=== PATIENT | female | born 1950 | race Caucasian/White ===

== ENCOUNTER → 2016-07-18 | Outpatient (CLI) | payer MEDICARE ==
[2016-07-18 11:34] LABS: Appearance,Urine Cloudy (Clear); Bilirubin,Urine Negative (Negative); Glucose,Urine (UA) Negative (Negative); Ketones,Urine Negative (Negative); Leukocyte Esterase,Urine Large (Negative); Mucus,Urine Many /hpf; Nitrite,Urine Negative (Negative); PH, Urine 6.5 (5.0-8.0); Particle Count 13384; Protein,Urine 1+ (Negative); RBC,Urine 2 /hpf (0-5); Specific Gravity,Urine 1.021 (1.001-1.035); Squamous Epithelial Cell,Urine 4 /hpf (0-4); UA Billing (MACRO vs. MICRO) MICRO; Urobilinogen,Urine <2.0 mg/dL (<2.0); WBC,Urine 17 /hpf (0-5)
[2016-07-18 11:40] LABS: CH 32.2; CHCM 32.9; HCT 39.1 % (34.0-46.0); HDW 2.37; MCHC 33.6 g/dL (31.0-37.0); MCV 98.2 fL (80.0-100.0); Mean Platelet Volume 6.5; RBC 3.98 m/uL (3.80-5.40); RDW 12.9 % (11.5-15.5); WBC 5.2 k/uL (3.8-10.6)
[2016-07-18 11:49] LABS: HGB 13.1 gm/dL (11.4-16.0)
[2016-07-18 11:56] LABS: ALT 34 U/L (9-52); AST 24 U/L (14-36); Alkaline Phosphatase 78 U/L (38-126); Anion Gap 11 mmol/L; Blood Urea Nitrogen 11 mg/dL (7-17); Calcium 9.1 mg/dL (8.4-10.2); Carbon Dioxide 30 mmol/L (22-30); Chloride 104 mmol/L (98-107); Cholesterol 231 mg/dL (<200); Glucose 90 mg/dL (74-99); HDL Cholesterol 70 mg/dL (40-60); Non-African American GFR(MDRD) >60 (>60 ml/min/1.73 sqM); Potassium 4.1 mmol/L (3.5-5.1); Sodium 145 mmol/L (137-145); Total Bilirubin 0.5 mg/dL (0.2-1.3); Triglycerides 180 mg/dL (<150)
== END | disposition home or self-care (01) ==
LOC: LABWHC1 10:55
PROVIDERS: ATTEND Internal Medicine
DX: Z00.01 Encounter for general adult medical examination with abnormal findings (principal); I11.9 Hypertensive heart disease without heart failure; E78.2 Mixed hyperlipidemia; M19.90 Unspecified osteoarthritis, unspecified site; R35.0 Frequency of micturition
CPT/HCPCS: 36415; 80053; 80061; 81001; 84439; 84443; 85027

== ENCOUNTER 2017-02-01 18:28 | Inpatient (IN) | payer MEDICARE ==
[2017-02-01] MEDS ORDERED: ONDANSETRON 4 MG/2 ML VIAL IVP STA (18:54)
[2017-02-01] MEDS ORDERED: SODIUM CHLORIDE 0.9% 1,000 ML IV STA (18:54)
[2017-02-01] MEDS ORDERED: MORPHINE SULFATE 4 MG/ML SYRINGE IV STA (18:54)
[2017-02-01] MEDS ORDERED: RX INFO: IV CONTRAST WAS GIVEN 1 EACH MISC MISCELLANE PRN ×2 (18:55→18:58)
--- NOTE | 2017-02-01 19:00 | ED ---
General Adult HPI - General Chief complaint: Back Pain/Injury Stated complaint: back pain,nausea Time Seen by Provider: 02/01/17 18:46 Source: patient, family, RN notes reviewed Mode of arrival: wheelchair Limitations: no limitations - History of Present Illness Initial comments: Patient is a pleasant 67-year-old female presenting to the emergency department complaining of back pain. Patient has mid thoracic pain that was severe and sudden onset. Discomfort was sharp without radiation. Patient did have associated shortness of breath and nausea. No vomiting. Patient was diaphoretic. No history of similar symptoms previously. Discomfort has improved is currently rated only 4/10. - Related Data Home Medications Medication Instructions Recorded Confirmed Potassium Gluconate 99 mg PO SUTUTHSA 12/18/13 02/01/17 Zolpidem Tartrate 5 mg PO HS PRN 12/19/13 02/01/17 Cetirizine HCl [Zyrtec] 10 mg PO DAILY 12/29/15 02/01/17 diphenhydrAMINE [Benadryl] 25 mg PO HS 12/29/15 02/01/17 Furosemide [Lasix] 40 mg PO DAILY 05/31/16 02/01/17 Multivitamins, Thera [Multivitamin 1 tab PO DAILY 05/31/16 02/01/17 (formulary)] Calcium Carbonate/Vitamin D3 1 tab PO BID 02/01/17 02/01/17 [Calcium 600-Vit D3 200 Tablet] Escitalopram [Lexapro] 20 mg PO DAILY 02/01/17 02/01/17 Cedric Red Krill Oil 1 tab PO Q48H 02/01/17 02/01/17 Meloxicam 7.5 mg PO DAILY 02/01/17 02/01/17 Omeprazole [PriLOSEC] 40 mg PO AC-BID 02/01/17 02/01/17 Pravastatin Sodium [Pravachol] 20 mg PO DAILY 02/01/17 02/01/17 Vitamin A 10,000 unit PO DAILY 02/01/17 02/01/17 amLODIPine BESYLATE/BENAZEPRIL 1 cap PO DAILY 02/01/17 02/01/17 [Lotrel 5-20 mg Capsule] Allergies Allergy/AdvReac Type Severity Reaction Status Date / Time foaming hand soaps AdvReac Swelling Uncoded 02/01/17 18:32 of eyes Review of Systems ROS Statement: Those systems with pertinent positive or pertinent negative responses have been documented in the HPI. ROS Other: All systems not noted in ROS Statement are negative. Constitutional: Denies: fever Eyes: Denies: eye pain ENT: Denies: ear pain Respiratory: Reports: dyspnea. Denies: cough Cardiovascular: Denies: chest pain Endocrine: Denies: fatigue Gastrointestinal: Reports: nausea. Denies: abdominal pain, vomiting Genitourinary: Denies: dysuria Musculoskeletal: Reports: back pain Skin: Denies: rash Neurological: Denies: weakness Past Medical History Past Medical History: GERD/Reflux, Hyperlipidemia, Hypertension, Osteoarthritis (OA), Sleep Apnea/CPAP/BIPAP Additional Past Medical History / Comment(s): No longer has sleep apnea. change in bowel habits History of Any Multi-Drug Resistant Organisms: None Reported Past Surgical History: Back Surgery, Bariatric Surgery, Cholecystectomy, Hernia Repair, Tubal Ligation Additional Past Surgical History / Comment(s): 06/05/16 Panniculectomy, incisional ventral hernia repair. Other surgical hx: EGD,COLONOSCOPY, gastric Sleeve, revision of PANNICULECTOMY 06/19/16 Past Anesthesia/Blood Transfusion Reactions: Postoperative Nausea & Vomiting ( PONV) Past Psychological History: Depression Smoking Status: Never smoker Past Alcohol Use History: Occasional Past Drug Use History: None Reported - Past Family History Father Family Medical History: Diabetes Mellitus Mother Family Medical History: Congestive Heart Failure (CHF), Diabetes Mellitus, Hypertension General Exam Limitations: no limitations General appearance: alert, in no apparent distress Head exam: Present: atraumatic Eye exam: Present: normal appearance, PERRL ENT exam: Present: normal oropharynx Neck exam: Present: normal inspection Respiratory exam: Present: normal lung sounds bilaterally. Absent: chest wall tenderness Cardiovascular Exam: Present: regular rate, normal rhythm Expanded Peripheral pulses: 2+: Dorsalis Pedis (R), Dorsalis Pedis (L) GI/Abdominal exam: Present: soft. Absent: distended, tenderness, pulsatile mass Extremities exam: Present: normal inspection. Absent: pedal edema, calf tenderness Back exam: Present: normal inspection. Absent: tenderness Neurological exam: Present: alert Psychiatric exam: Present: normal affect, normal mood Skin exam: Present: normal color Course Vital Signs 02/01/17 02/01/17 02/01/17 18:30 18:40 20:07 Temperature 98.2 F 98.6 F Pulse Rate 80 87 72 Respiratory 26 H 28 H 17 Rate Blood Pressure 122/66 116/78 159/79 O2 Sat by Pulse 100 100 Oximetry 02/01/17 21:18 Temperature Pulse Rate 70 Respiratory 18 Rate Blood Pressure 129/79 O2 Sat by Pulse 98 Oximetry EKG Findings - EKG Comments: EKG Findings:: Normal sinus rhythm 77. FL 138. QRS 88. QT 44. QTC 491. Normal axis. Normal QRS. Normal ST-T. Medical Decision Making - Medical Decision Making Patient reevaluated and resting comfortably in bed. Patient and family updated on results and plan. Case was discussed in detail with Dr. Celaya, who will admit his patient with consult for Dr. Crow. Patient will be admitted for repeat cardiac testing and repeat evaluation of lipase with surgical consult. - Lab Data Result diagrams: 02/01/17 18:40 02/01/17 18:40 Lab Results 02/01/17 02/01/17 02/01/17 Range/Units 18:40 18:40 18:40 WBC 8.4 (3.8-10.6) k/uL RBC 4.32 (3.80-5.40) m/uL Hgb 14.3 (11.4-16.0) gm/dL Hct 40.6 (34.0-46.0) % MCV 93.9 (80.0-100.0) fL MCH 33.0 (25.0-35.0) pg MCHC 35.2 (31.0-37.0) g/dL RDW 12.6 (11.5-15.5) % Plt Count 255 (150-450) k/uL Neutrophils % 80 % Lymphocytes % 13 % Monocytes % 4 % Eosinophils % 1 % Basophils % 0 % Neutrophils # 6.7 (1.3-7.7) k/uL Lymphocytes # 1.1 (1.0-4.8) k/uL Monocytes # 0.3 (0-1.0) k/uL Eosinophils # 0.1 (0-0.7) k/uL Basophils # 0.0 (0-0.2) k/uL PT (9.0-12.0) sec INR (<1.2) APTT (22.0-30.0) sec Sodium 142 (137-145) mmol/L Potassium 3.7 (3.5-5.1) mmol/L Chloride 105 (98-107) mmol/L Carbon Dioxide 21 L (22-30) mmol/L Anion Gap 16 mmol/L BUN 21 H (7-17) mg/dL Creatinine 0.98 (0.52-1.04) mg/dL Est GFR (MDRD) Af Amer >60 (>60 ml/min/1.73 sqM) Est GFR (MDRD) Non-Af 57 (>60 ml/min/1.73 sqM) Glucose 82 (74-99) mg/dL Calcium 9.5 (8.4-10.2) mg/dL Magnesium 1.8 (1.6-2.3) mg/dL Total Bilirubin 0.6 (0.2-1.3) mg/dL AST 56 H (14-36) U/L ALT 39 (9-52) U/L Alkaline Phosphatase 96 (38-126) U/L Total Creatine Kinase 86 (30-135) U/L CK-MB (CK-2) 1.0 (0.0-2.4) ng/mL CK-MB (CK-2) Rel Index 1.2 Troponin I <0.012 (0.000-0.034) ng/mL Total Protein 7.7 (6.3-8.2) g/dL Albumin 4.6 (3.5-5.0) g/dL Amylase 89 (30-110) U/L Lipase 472 H (23-300) U/L 02/01/17 Range/Units 18:40 WBC (3.8-10.6) k/uL RBC (3.80-5.40) m/uL Hgb (11.4-16.0) gm/dL Hct (34.0-46.0) % MCV (80.0-100.0) fL MCH (25.0-35.0) pg MCHC (31.0-37.0) g/dL RDW (11.5-15.5) % Plt Count (150-450) k/uL Neutrophils % % Lymphocytes % % Monocytes % % Eosinophils % % Basophils % % Neutrophils # (1.3-7.7) k/uL Lymphocytes # (1.0-4.8) k/uL Monocytes # (0-1.0) k/uL Eosinophils # (0-0.7) k/uL Basophils # (0-0.2) k/uL PT 10.3 (9.0-12.0) sec INR 1.0 (<1.2) APTT 22.6 (22.0-30.0) sec Sodium (137-145) mmol/L Potassium (3.5-5.1) mmol/L Chloride (98-107) mmol/L Carbon Dioxide (22-30) mmol/L Anion Gap mmol/L BUN (7-17) mg/dL Creatinine (0.52-1.04) mg/dL Est GFR (MDRD) Af Amer (>60 ml/min/1.73 sqM) Est GFR (MDRD) Non-Af (>60 ml/min/1.73 sqM) Glucose (74-99) mg/dL Calcium (8.4-10.2) mg/dL Magnesium (1.6-2.3) mg/dL Total Bilirubin (0.2-1.3) mg/dL AST (14-36) U/L ALT (9-52) U/L Alkaline Phosphatase (38-126) U/L Total Creatine Kinase (30-135) U/L CK-MB (CK-2) (0.0-2.4) ng/mL CK-MB (CK-2) Rel Index Troponin I (0.000-0.034) ng/mL Total Protein (6.3-8.2) g/dL Albumin (3.5-5.0) g/dL Amylase (30-110) U/L Lipase (23-300) U/L - Radiology Data Radiology results: report reviewed (Computed tomography scan of the chest abdomen pelvis shows no evidence of pulmonary embolism or aorta problem. Mild bleed distended small bowel consistent with ileus.) Disposition Clinical Impression: Thoracic back pain Disposition: ADMITTED IP TO THIS [facility] Referrals: Shiva Celaya MD [Primary Care Provider] - 1-2 days Decision Time: 21:23
[2017-02-01 19:12] LABS: Basophils % (A) 0 %; CH 32.7; Eosinophils # (A) 0.1 k/uL (0-0.7); Eosinophils % (A) 1 %; HCT 40.6 % (34.0-46.0); HGB 14.3 gm/dL (11.4-16.0); Luc # (Auto) 0.14; Luc % (Auto) 2; Lymphocytes # (A) 1.1 k/uL (1.0-4.8); Lymphocytes % (A) 13 %; MCHC 35.2 g/dL (31.0-37.0); MCV 93.9 fL (80.0-100.0); Mean Platelet Volume 7.1; Monocytes # (A) 0.3 k/uL (0-1.0); Monocytes % (A) 4 %; Neutrophils # (A) 6.7 k/uL (1.3-7.7); Neutrophils % (A) 80 %; RBC 4.32 m/uL (3.80-5.40); RDW 12.6 % (11.5-15.5); WBC 8.4 k/uL (3.8-10.6); WBC (Perox) 8.41
[2017-02-01 19:23] LABS: ALT 39 U/L (9-52); AST 56 U/L (14-36); Alkaline Phosphatase 96 U/L (38-126); Amylase 89 U/L (30-110); Anion Gap 16 mmol/L; Blood Urea Nitrogen 21 mg/dL (7-17); Calcium 9.5 mg/dL (8.4-10.2); Carbon Dioxide 21 mmol/L (22-30); Chloride 105 mmol/L (98-107); Glucose 82 mg/dL (74-99); Magnesium 1.8 mg/dL (1.6-2.3); Non-African American GFR(MDRD) 57 (>60 ml/min/1.73 sqM); Potassium 3.7 mmol/L (3.5-5.1); Sodium 142 mmol/L (137-145); Total Bilirubin 0.6 mg/dL (0.2-1.3); Total Protein 7.7 g/dL (6.3-8.2)
[2017-02-01 19:30] LABS: Partial Thromboplastin Time 22.6 sec (22.0-30.0); Prothrombin Time 10.3 sec (9.0-12.0)
[2017-02-01 19:34] LABS: Creatine Kinase 86 U/L (30-135)
[2017-02-01 19:46] LABS: Troponin I <0.012 ng/mL (0.000-0.034)
--- NOTE | 2017-02-01 20:19 | CT ---
EXAMINATION TYPE: CT angio thoracic/abd aorta DATE OF EXAM: 02/01/2017 COMPARISON: NONE HISTORY: Back pain CT DLP: mGycm. Automated Exposure Control for Dose Reduction was Utilized. CONTRAST: Visipaque 100 mL. There are 3-D post processed images. FINDINGS: The lungs are clear of consolidation. There is no pleural effusion. There is no mediastinal adenopath y. Ascending aorta measures 3.5 cm. There is no pericardial effusion. There is no evidence of aortic dissection. There is patency of the superior mesenteric artery and the celiac artery. There is bilateral patency of the common internal a nd external iliac arteries. There is no sign of stenosis. There is no retroperitoneal adenopathy. Liver spleen pancreas appear normal. There are clips from cholecystectomy. Kidneys have normal size a nd contour. There is no hydronephrosis. There are multiple fluid-filled loops of small bowel. These m easure up to 3.5 cm. There is no ascites. Bladder distends smoothly. There is normal contrast opacification of the pulmonary arteries. There are no filling defects. I see no focal bony destructive process. IMPRESSION: No evidence of pulmonary embolism. No evidence of aortic aneurysm or dissection. No sign of any hemodynamically significant stenosis. 1 cm left renal cortical cyst noted. Minimal atheroscler otic vascular calcification. Mildly distended small bowel consistent with small bowel ileus..
[2017-02-01] MEDS ORDERED: NITROGLYCERIN SL TABS 0.4 MG TAB SUBLINGUAL STA (20:42)
[2017-02-01] MEDS ORDERED: NALOXONE 0.4 MG/ML 1 ML VIAL IV PRN (21:25)
[2017-02-01] MEDS ORDERED: traMADol 50 MG TAB PO PRN (21:25)
[2017-02-01] MEDS ORDERED: ONDANSETRON 4 MG/2 ML VIAL IVP PRN (21:25)
[2017-02-01] MEDS: HYDROmorphone 1 MG/ML 1 ML SYRINGE IV PRN (21:52)
[2017-02-01 22:33] VITALS: BMI 27.9
[2017-02-02 01:10] VITALS: RESP 18
[2017-02-02] MEDS: HYDROmorphone 1 MG/ML 1 ML SYRINGE IV PRN (01:28)
[2017-02-02 01:50] LABS: Creatine Kinase 72 U/L (30-135)
[2017-02-02 02:03] LABS: Creatine Kinase MB 0.9 ng/mL (0.0-2.4); Troponin I <0.012 ng/mL (0.000-0.034)
[2017-02-02 07:14] LABS: ALT 408 U/L (9-52); AST 726 U/L (14-36); Alkaline Phosphatase 110 U/L (38-126); Amylase <30 U/L (30-110); Anion Gap 6 mmol/L; Blood Urea Nitrogen 16 mg/dL (7-17); Carbon Dioxide 28 mmol/L (22-30); Chloride 106 mmol/L (98-107); Cholesterol 175 mg/dL (<200); Glucose 80 mg/dL (74-99); HDL Cholesterol 59 mg/dL (40-60); Non-African American GFR(MDRD) >60 (>60 ml/min/1.73 sqM); Potassium 3.7 mmol/L (3.5-5.1); Sodium 140 mmol/L (137-145); Total Bilirubin 1.2 mg/dL (0.2-1.3)
[2017-02-02 07:17] LABS: Basophils % (A) 1 %; CH 32.9; CHCM 33.5; Eosinophils # (A) 0.1 k/uL (0-0.7); Eosinophils % (A) 3 %; HCT 35.5 % (34.0-46.0); HDW 2.22; HGB 11.9 gm/dL (11.4-16.0); Luc # (Auto) 0.05; Luc % (Auto) 1; Lymphocytes # (A) 0.4 k/uL (1.0-4.8); Lymphocytes % (A) 11 %; MCH 33.2 pg (25.0-35.0); MCHC 33.6 g/dL (31.0-37.0); MCV 98.8 fL (80.0-100.0); Mean Platelet Volume 7.8; Monocytes # (A) 0.2 k/uL (0-1.0); Monocytes % (A) 7 %; Neutrophils # (A) 2.6 k/uL (1.3-7.7); Neutrophils % (A) 77 %; RDW 13.1 % (11.5-15.5); WBC 3.4 k/uL (3.8-10.6); WBC (Perox) 3.69
[2017-02-02 07:42] LABS: Creatine Kinase 69 U/L (30-135)
[2017-02-02 07:54] LABS: Creatine Kinase MB 0.7 ng/mL (0.0-2.4); Troponin I <0.012 ng/mL (0.000-0.034)
--- NOTE | 2017-02-02 10:32 | ECHOF ---
Referral Reason:thoracic back pain MEASUREMENTS -------- HEIGHT: 170.2 cm WEIGHT: 80.7 kg BP: RVIDd: 2.7 cm (< 3.3) IVSd: 1.2 cm (0.6 - 1.1) LVIDd: 4.9 cm (3.9 - 5.3) LVPWd: 0.9 cm (0.6 - 1.1) IVSs: 1.4 cm LVIDs: 4.0 cm LVPWs: 1.4 cm LA Diam: 3.2 cm (2.7 - 3.8) LAESV Index (A-L): 29.24 ml/m Ao Diam: 3.1 cm (2.0 - 3.7) AV Cusp: 2.0 cm (1.5 - 2.6) LA Diam: 4.0 cm (2.7 - 3.8) MV EXCURSION: 13.189 mm (> 18.000) MV EF SLOPE: 74 mm/s (70 - 150) EPSS: 0.7 cm MV E Yassine: 0.89 m/s MV DecT: 181 ms MV A Yassine: 0.98 m/s MV E/A Ratio: 0.90 RAP: 5.00 mmHg RVSP: 36.87 mmHg FINDINGS -------- Sinus rhythm. This was a technically adequate study. The left ventricular size is normal. There is mild concentric left ventricular hypertrophy. Overall left ventricular systolic function is normal with, an EF between 55 - 60 %. The right ventricle is normal in size. LA is midly dilated 29-33ml/m2. The right atrial size is normal. The aortic valve is trileaflet, and appears structurally normal. No aortic stenosis or regurgitation. The mitral valve is normal. Mild mitral regurgitation is present. Mild tricuspid regurgitation present. There is no evidence of pulmonary hypertension. The right ventricular systolic pressure, as measured by Doppler, is 36.87mmHg. There is no pulmonic regurgitation present. The aortic root size is normal. There is no pericardial effusion. CONCLUSIONS -------- 1. Sinus rhythm. 2. The aortic root size is normal. 3. There is no pericardial effusion. 4. There is mild concentric left ventricular hypertrophy. 5. Overall left ventricular systolic function is normal with, an EF between 55 - 60 %. 6. LA is midly dilated 29-33ml/m2. 7. The aortic valve is trileaflet, and appears structurally normal. No aortic stenosis or regurgitation. 8. Mild mitral regurgitation is present. 9. Mild tricuspid regurgitation present. 10. There is no evidence of pulmonary hypertension. 11. There is no pulmonic regurgitation present. [employer]: Mary Aguirre RDCS
[2017-02-02] MEDS: ACETAMINOPHEN TAB 325 MG TAB PO PRN ×3 (10:43→23:03)
--- NOTE | 2017-02-02 11:21 | CONS ---
CHIEF COMPLAINT: Chest pain. Arleth is a 67-year-old lady with history of hypertension who presented to hospital with upper back pain. It is mild to moderate in intensity, came on at rest, got worse with movements and deep breaths. She comes in. EKG does not reveal ischemic changes. Cardiac enzymes have been negative. A CT chest did not reveal pulmonary embolism or aortic aneurysm or dissection. She had significant elevation of liver enzymes. She came in with AST, ALT of 56 and 39, they jumped to 726 and 408. Potassium is 3.7. Creatinine is 0.7. Hemoglobin is 11.9. At the time of my evaluation this morning, she is pain free. Hemodynamically stable and in no apparent distress. Past medical history is significant for hypertension, dyslipidemia. Current medications include Pravachol 20 q. daily, Lotrel, Benadryl, Prilosec, multivitamin, Lasix, Lexapro, Zyrtec. ALLERGIES: There are no known drug allergies. Family history is negative for premature coronary artery disease. Social history is negative for smoking, EtOH abuse or drug abuse. REVIEW OF SYSTEMS: HEENT: Unremarkable. CARDIAC: As described above. RESPIRATORY: Negative. GI: Negative. GENITOURINARY: Negative. ALLERGY/IMMUNOLOGIC: Negative. MUSCULOSKELETAL: Negative. ENDOCRINE: Negative. HEMATOLOGIC: Negative. DERM: Negative. CONSTITUTIONAL: Negative. ONCOLOGICAL: Negative. The rest of the system review is not relevant. On exam, she is comfortable at rest. Vital signs are stable. There is no jugular venous distention. Abdomen is soft. Examination of the extremities did not reveal any edema. Peripheral pulses are felt. [employer] OPERATOR exam did not reveal focal neurological deficits. A CT chest is negative for pulmonary embolism. An echocardiogram shows normal LV function. EKG does not reveal ischemic changes. ASSESSMENT: 1. Atypical chest pain 2. Elevated liver enzymes. PLAN: I reviewed echo, CT chest, EKG, cardiac enzymes. I do not think she requires further workup at this time. When she is discharged home, I will arrange for an outpatient stress test on her. She has elevated liver enzymes and this needs to be investigated further. We should certainly consider CBD stones. Surgery has already been consulted and I am going to defer this to their expertise. JACKY
[2017-02-02 11:27] LABS: Appearance,Urine Clear (Clear); Bilirubin,Urine Negative (Negative); Glucose,Urine (UA) Negative (Negative); Ketones,Urine Negative (Negative); Leukocyte Esterase,Urine Small (Negative); Mucus,Urine Rare /hpf; Nitrite,Urine Negative (Negative); Particle Count 1223; Protein,Urine Trace (Negative); Specific Gravity,Urine 1.031 (1.001-1.035); UA Billing (MACRO vs. MICRO) MICRO; WBC,Urine 4 /hpf (0-5)
[2017-02-02] MEDS: PANTOPRAZOLE 40 MG TABLET PO SCH (12:37)
--- NOTE | 2017-02-02 15:07 | P.GSCN ---
History of Present Illness Consult date: 02/02/17 Reason for Consult: Back pain Requesting physician: Shiva Celaya History of present illness: 67 years old female presented with acute onset of upper back pain described as sharp stabbing lasting for 1 day. No aggravating or relieving factors Workup included CT chest which did not show aluminum embolism or thoracic aneurysm. Patient now reports pain has resolved. No cough or shortness of breath. No burning urination or blood in urine. Lipase mildly elevated at admission which has resolved. Normal appetite. No abdominal pain. Patient is status post sleeve gastrectomy in 2013 with more than 80 pounds weight loss, status post panniculectomy and revisional surgery after panniculectomy including hernia repair. No surgical site infection. No open wounds Review of Systems Constitutional: Denies fever, weight loss or loss of appetite HEENT: No difficulty in vision or hearing. Denies dysphagia. Cardiovascular: Denies chest pain, palpitations, dizziness, shortness of breath. Respiratory: No cough or SOB Gastrointestinal: No recent change in bowel habits, no abdominal pain, no nausea or vomiting. Denies reflux symptoms. Integumentary: No skin ulcers or breakdown. Genitourinary: No urinary incontinence, hematuria or dysuria Neurologic: No seizures, denies weakness in upper or lower extremities Musculoskeletal: Known arthritis and joint pain Psychiatry: Known history of depression, no suicidal ideation, no anxiety or psychosis ROS unobtainable: due to endotracheal tube Past Medical History Past Medical History: GERD/Reflux, Hyperlipidemia, Hypertension, Osteoarthritis (OA), Sleep Apnea/CPAP/BIPAP Additional Past Medical History / Comment(s): No longer uses CPAP for sleep apnea, constipation, gallbladder attacks- removed in 1984 History of Any Multi-Drug Resistant Organisms: None Reported Past Surgical History: Back Surgery, Bariatric Surgery, Cholecystectomy, Hernia Repair, Tubal Ligation Additional Past Surgical History / Comment(s): 06/05/16 Panniculectomy, incisional ventral hernia repair. Other surgical hx: EGD,COLONOSCOPY, gastric Sleeve, revision of PANNICULECTOMY 06/19/16 Past Anesthesia/Blood Transfusion Reactions: Postoperative Nausea & Vomiting ( PONV) Past Psychological History: Depression Additional Psychological History / Comment(s): Pt resides with her spouse. She is independent. Smoking Status: Never smoker Past Alcohol Use History: Occasional Additional Past Alcohol Use History / Comment(s): 1-2 x /week Past Drug Use History: None Reported - Past Family History Father Family Medical History: Diabetes Mellitus Mother Family Medical History: Congestive Heart Failure (CHF), Diabetes Mellitus, Hypertension Medications and Allergies Home Medications Medication Instructions Recorded Confirmed Type Potassium Gluconate 99 mg PO SUTUTHSA 12/18/13 02/01/17 History Zolpidem Tartrate 5 mg PO HS PRN 12/19/13 02/01/17 History Cetirizine HCl [Zyrtec] 10 mg PO DAILY 12/29/15 02/01/17 History diphenhydrAMINE [Benadryl] 25 mg PO HS 12/29/15 02/01/17 History Furosemide [Lasix] 40 mg PO DAILY 05/31/16 02/01/17 History Multivitamins, Thera [Multivitamin 1 tab PO DAILY 05/31/16 02/01/17 History (formulary)] Calcium Carbonate/Vitamin D3 1 tab PO BID 02/01/17 02/01/17 History [Calcium 600-Vit D3 200 Tablet] Escitalopram [Lexapro] 20 mg PO DAILY 02/01/17 02/01/17 History Cedric Red Krill Oil 1 tab PO Q48H 02/01/17 02/01/17 History Meloxicam 7.5 mg PO DAILY 02/01/17 02/01/17 History Omeprazole [PriLOSEC] 40 mg PO AC-BID 02/01/17 02/01/17 History Pravastatin Sodium [Pravachol] 20 mg PO DAILY 02/01/17 02/01/17 History Vitamin A 10,000 unit PO DAILY 02/01/17 02/01/17 History amLODIPine BESYLATE/BENAZEPRIL 1 cap PO DAILY 02/01/17 02/01/17 History [Lotrel 5-20 mg Capsule] Allergies Allergy/AdvReac Type Severity Reaction Status Date / Time foaming hand soaps AdvReac Swelling Uncoded 02/01/17 18:32 of eyes Surgical - Exam Vital Signs Temp Pulse Resp BP Pulse Ox 98.2 F 80 26 H 122/66 100 02/01/17 18:30 02/01/17 18:30 02/01/17 18:30 02/01/17 18:30 02/01/17 18:30 General: Patient is alert and oriented to time, place and person and cooperative with exam. HEENT: No pallor, no icterus, no thyroid enlargement, no cervical lymphadenopathy. Chest: Bilateral equal breath sounds present. No wheezes, no crackles. Cardiovascular: Regular rate and rhythm. Abdomen: Soft, nontender, nondistended. Well-healed surgical scars . No hernias Integumentary: No active ulcers or discharge. Neurologic: Cranial nerves II-XII intact. Strength upper and lower extremities 5/5. No focal neurologic deficits. Gait is normal. Psychiatric: No anxiety or psychosis. No suicidal thoughts. Results - Labs 02/02/17 05:47 02/02/17 05:47 Abnormal Lab Results - Last 24 Hours (Table) 02/01/17 02/02/17 02/02/17 Range/Units 18:40 05:47 05:47 WBC 3.4 L (3.8-10.6) k/uL RBC 3.60 L (3.80-5.40) m/uL Lymphocytes # 0.4 L (1.0-4.8) k/uL Carbon Dioxide 21 L (22-30) mmol/L BUN 21 H (7-17) mg/dL Calcium 8.0 L (8.4-10.2) mg/dL AST 56 H 726 H (14-36) U/L ALT 408 H (9-52) U/L Total Protein 6.0 L (6.3-8.2) g/dL LDL Cholesterol, Calc 103 H (0-99) mg/dL Amylase <30 L (30-110) U/L Lipase 472 H (23-300) U/L Urine Protein (Negative) Ur Leukocyte Esterase (Negative) Urine Mucus (None) /hpf 02/02/17 Range/Units 10:50 WBC (3.8-10.6) k/uL RBC (3.80-5.40) m/uL Lymphocytes # (1.0-4.8) k/uL Carbon Dioxide (22-30) mmol/L BUN (7-17) mg/dL Calcium (8.4-10.2) mg/dL AST (14-36) U/L ALT (9-52) U/L Total Protein (6.3-8.2) g/dL LDL Cholesterol, Calc (0-99) mg/dL Amylase (30-110) U/L Lipase (23-300) U/L Urine Protein Trace H (Negative) Ur Leukocyte Esterase Small H (Negative) Urine Mucus Rare H (None) /hpf Microbiology - Last 24 Hours (Table) 02/02/17 10:50 Urine Culture - Preliminary Urine,Clean Catch Diabetes panel 02/01/17 02/02/17 Range/Units 18:40 05:47 Sodium 142 140 (137-145) mmol/L Potassium 3.7 3.7 (3.5-5.1) mmol/L Chloride 105 106 (98-107) mmol/L Carbon Dioxide 21 L 28 (22-30) mmol/L BUN 21 H 16 (7-17) mg/dL Creatinine 0.98 0.75 (0.52-1.04) mg/dL Glucose 82 80 (74-99) mg/dL Calcium 9.5 8.0 L (8.4-10.2) mg/dL AST 56 H 726 H (14-36) U/L ALT 39 408 H (9-52) U/L Alkaline Phosphatase 96 110 (38-126) U/L Total Protein 7.7 6.0 L (6.3-8.2) g/dL Albumin 4.6 3.5 (3.5-5.0) g/dL Triglycerides 67 (<150) mg/dL HDL Cholesterol 59 (40-60) mg/dL Calcium panel 02/01/17 02/02/17 Range/Units 18:40 05:47 Calcium 9.5 8.0 L (8.4-10.2) mg/dL Albumin 4.6 3.5 (3.5-5.0) g/dL Pituitary panel 02/01/17 02/02/17 Range/Units 18:40 05:47 Sodium 142 140 (137-145) mmol/L Potassium 3.7 3.7 (3.5-5.1) mmol/L Chloride 105 106 (98-107) mmol/L Carbon Dioxide 21 L 28 (22-30) mmol/L BUN 21 H 16 (7-17) mg/dL Creatinine 0.98 0.75 (0.52-1.04) mg/dL Glucose 82 80 (74-99) mg/dL Calcium 9.5 8.0 L (8.4-10.2) mg/dL Adrenal panel 07/20/17 07/21/17 Range/Units 18:40 05:47 Sodium 142 140 (137-145) mmol/L Potassium 3.7 3.7 (3.5-5.1) mmol/L Chloride 105 106 (98-107) mmol/L Carbon Dioxide 21 L 28 (22-30) mmol/L BUN 21 H 16 (7-17) mg/dL Creatinine 0.98 0.75 (0.52-1.04) mg/dL Glucose 82 80 (74-99) mg/dL Calcium 9.5 8.0 L (8.4-10.2) mg/dL Total Bilirubin 0.6 1.2 (0.2-1.3) mg/dL AST 56 H 726 H (14-36) U/L ALT 39 408 H (9-52) U/L Alkaline Phosphatase 96 110 (38-126) U/L Total Protein 7.7 6.0 L (6.3-8.2) g/dL Albumin 4.6 3.5 (3.5-5.0) g/dL Assessment and Plan (1) Thoracic back pain Status: Acute (2) Status post panniculectomy Status: Acute (3) Bariatric surgery status Status: Chronic (4) Hx of cholecystectomy Status: Chronic Plan: 1. No acute surgical abdomen 2. Elevated LFTs, etiology unclear 3. Repeat amylase, lipase , LFTs and CBC in am 4. Regular diet 5. Resume daily MVI
--- NOTE | 2017-02-02 17:08 | HP ---
CHIEF COMPLAINT: Severe mid thoracic back pain and upper abdominal pain associated with nausea. This is a 67 year old white female who was brought to the emergency room with sudden onset of severe mid thoracic back pain and upper abdominal discomfort and some associated nausea. These were extremely severe pain mostly in the back and this was associated with some degree of shortness of breath and in the emergency room, she had extensive evaluation and her CBC was unremarkable with a WBC 8.4. Hemoglobin 14.3, platelet count 255,000. PT and INR within normal limits. Sodium 142, potassium 3.7, BUN 21, creatinine 0.98. Glucose 82. AST in the ER was 56 and ALT 59. Alkaline phosphatase 96. Serum amylase 89 and lipase 478. She had a CT angio of the chest and abdomen which was reported as essentially negative. No aortic aneurysm or pulmonary embolism. Liver and spleen and pancreas appear normal. The patient was admitted to the hospital for further evaluation and treatment. Her past medical history reveals she is known to have hypertensive cardiovascular disease and also gastroesophageal reflux disease. She also has history of sleep apnea in the past and morbid obesity and she has had bariatric surgery by Dr. Camara. She had gastric sleeve surgery. She also has had panniculectomy, incisional ventral hernia repair, and back surgery in the past. Her current medications include: 1. Lexapro 20 mg daily. 2. Ambien 5 mg q.h.s. prn. 3. Lotrel 5/20 one daily. 4. Lasix 20 mg po daily. 5. Prilosec 20 mg po b.i.d. She has no known drug allergies. She does not smoke and she does not drink alcohol. FAMILY HISTORY: Positive for cancer and heart disease. REVIEW OF SYSTEMS: The patient denies any headache. Appetite has been good. Bowels are regular. She has no chest pain but she had upper back pain and also she has abdominal discomfort. She has no polyuria or dysuria. She has no neurological symptoms. Physical examination reveals a 67 year old white female well nourished and well developed but still she is having some pain that has improved since admission. There is no jaundice. There is no generalized lymphadenopathy. There are no petechia or bruises. Pulses 76 per minute and regular. Blood pressure 136/70. HEENT: negative. Neck is supple. There is no jugular venous distention. There is no goiter. There is no carotid bruit. Heart is in sinus rhythm. Lungs are clear to auscultation and percussion. Abdomen is soft and nontender. There is no mass palpable. Examination of the lower extremities revealed no pitting edema. Neurological examination does not reveal any localizing signs. IMPRESSION: 1. Upper abdominal and upper back pain, etiology undetermined. 2. Past history of bariatric surgery, gastric sleeve by Dr. Camara. 3. History of hypertensive cardiovascular disease. 4. Gastroesophageal reflux disease. 5. Degenerative arthritis, multiple joints. 6. History of major depression. 7. Hyperlipidemia. PLAN: The patient will be admitted to the hospital and the patient will get serial liver enzymes and amylase and lipase. Her repeat test shows elevated AST which is 726, ALT 408 and lipase elevated to 478. Rule out pancreatitis and we will also further evaluate liver enzymes. We will also consult Dr. Camara. Prognosis guarded. MTDD
--- NOTE | 2017-02-02 17:53 | P.PN ---
Progress Note - Text Patient seen and evaluated. Patient is well-known to me. She has elevated liver enzymes of unclear etiology. Primary hepatic stones may also have occurred. Also recommend liver ultrasound regarding the hepatobiliary system and cause for transient pancreatitis. Over the weekend rounder is Dr. Arechiga. She will follow-up with me as outpatient.
[2017-02-03 06:29] LABS: Basophils % (A) 1 %; CH 32.9; CHCM 33.6; Eosinophils # (A) 0.2 k/uL (0-0.7); Eosinophils % (A) 7 %; HCT 35.6 % (34.0-46.0); HDW 2.24; Luc % (Auto) 3; Lymphocytes % (A) 31 %; MCH 33.2 pg (25.0-35.0); MCHC 33.8 g/dL (31.0-37.0); MCV 98.4 fL (80.0-100.0); Mean Platelet Volume 7.6; Monocytes # (A) 0.2 k/uL (0-1.0); Monocytes % (A) 8 %; Neutrophils # (A) 1.6 k/uL (1.3-7.7); Neutrophils % (A) 50 %; RBC 3.62 m/uL (3.80-5.40); RDW 13.6 % (11.5-15.5); WBC 3.1 k/uL (3.8-10.6); WBC (Perox) 3.16
[2017-02-03] MEDS: PANTOPRAZOLE 40 MG TABLET PO SCH (06:30)
[2017-02-03 06:42] LABS: ALT 236 U/L (9-52); AST 192 U/L (14-36); Alkaline Phosphatase 104 U/L (38-126); Amylase <30 U/L (30-110); Anion Gap 5 mmol/L; Blood Urea Nitrogen 10 mg/dL (7-17); Calcium 8.4 mg/dL (8.4-10.2); Carbon Dioxide 29 mmol/L (22-30); Chloride 107 mmol/L (98-107); Glucose 80 mg/dL (74-99); Non-African American GFR(MDRD) >60 (>60 ml/min/1.73 sqM); Potassium 3.4 mmol/L (3.5-5.1); Sodium 141 mmol/L (137-145); Total Bilirubin 0.4 mg/dL (0.2-1.3); Total Protein 5.6 g/dL (6.3-8.2)
[2017-02-03] MEDS ORDERED: ZOLPIDEM 5 MG TAB PO PRN (10:31)
[2017-02-03] MEDS ORDERED: ESCITALOPRAM 20 MG TAB PO SCH (10:45)
[2017-02-03] MEDS ORDERED: LISINOPRIL 20 MG TAB PO SCH (10:45)
[2017-02-03] MEDS ORDERED: VITAMIN A 10,000 UNIT CAPSULE PO SCH (10:45)
[2017-02-03] MEDS ORDERED: LORATADINE 10 MG TAB PO SCH (10:45)
[2017-02-03] MEDS ORDERED: amLODIPine 5 MG TAB PO SCH (10:45)
[2017-02-03] MEDS ORDERED: POTASSIUM CHLORIDE ER 20 MEQ TAB.ER PO SCH (10:45)
[2017-02-03] MEDS ORDERED: MELOXICAM 7.5 MG TAB PO SCH (10:45)
[2017-02-03] MEDS ORDERED: PRAVASTATIN SODIUM 20 MG TAB PO SCH (10:45)
[2017-02-03] MEDS ORDERED: MULTIVITAMINS, THERA 1 EACH TAB PO SCH (12:00)
--- NOTE | 2017-02-03 12:12 | US ---
EXAMINATION TYPE: US abdomen complete DATE OF EXAM: 02/03/2017 COMPARISON: NONE CLINICAL HISTORY: elevated lfts EXAM MEASUREMENTS: Liver Length: 17 cm Gallbladder Wall: surgically absent CBD: 0.4cm Right Kidney: 11.1 x 4.3 x 5.3 cm Pancreas: wnl limited due to overlying bowel gas Liver: wnl Gallbladder: surgically absent Evidence for sonographic Toth's sign: no CBD: wnl Right Kidney: wnl The liver is homogenous. The intrahepatic portion of the IVC and proximal abdominal aorta are within normal limits. The gallbladder is surgically absent. Common bile duct is unremarkable. The visual ized portions of the pancreas are homogenous. The spleen is unremarkable. Rt kidney is free of hydr onephrosis. No renal lesions are seen. IMPRESSION: unremarkable study
[2017-02-03 12:40] VITALS: BP 189/90; PULSE 64; TEMP 96.8
[2017-02-03] MEDS ORDERED: PANTOPRAZOLE 40 MG TABLET PO SCH (17:30)
[2017-02-03] MEDS ORDERED: diphenhydrAMINE 25 MG CAP PO SCH (21:00)
[2017-02-03] MEDS ORDERED: CALCIUM CARB-VIT D 500MG-200UN 1 EACH TAB PO SCH (21:00)
[2017-02-04] MEDS ORDERED: FUROSEMIDE 40 MG TAB PO SCH (09:00)
--- NOTE | 2017-02-05 11:44 | PN ---
DATE OF SERVICE: 02/03/2017 This is a 67-year-old white female who was admitted with severe upper back and anterior epigastric discomfort. This was also associated with some nausea. In the emergency room she was evaluated and her CT scan was unremarkable. Her liver enzymes were slightly elevated. There was also slight elevation of lipase and patient was admitted to the hospital for further evaluation and treatment. Patient today seemed to be feeling slightly better. She was seen by Dr. Camara in consultation. Patient has had bariatric surgery in the past. Dr. Camara is going to do an ultrasound of the liver and her enzyme is coming down, but is still elevated. Patient is apparently feeling better and she wants to be discharged because she wants to go to go see her son finishing the [employer]. Patient was advised to have ultrasound down and maybe she may have to stay in the hospital for 1 to 2 more days to see the enzymes to continue to improve. We will also repeat the lipase and amylase and also the liver enzymes tomorrow. Her vital signs are otherwise stable. Will continue current medications. Patient was told that if she leaves the hospital today she may have to be discharged AMA. Patient understood her situation well and so as planned if she is staying here we will repeat the serum amylase and also the liver enzymes. She was febrile yesterday and she received 2 doses of Rocephin and she is afebrile. When she is discharged she will be given a course of Keflex. Prognosis guarded. MTDD
== END 2017-02-03 13:14 | disposition left against medical advice (07) | DRG 552 ==
LOC: EC 18:28 → 6SEL 21:23 → OBSVTOIN 02-03 12:43
PROVIDERS: ADMIT Internal Medicine; ATTEND Internal Medicine
DX: M54.6 Pain in thoracic spine (principal); I11.9 Hypertensive heart disease without heart failure; R07.89 Other chest pain; R10.10 Upper abdominal pain, unspecified; E78.5 Hyperlipidemia, unspecified; G47.30 Sleep apnea, unspecified; K21.9 Gastro-esophageal reflux disease without esophagitis; M19.90 Unspecified osteoarthritis, unspecified site; F32.9 Major depressive disorder, single episode, unspecified; R74.8 Abnormal levels of other serum enzymes; Z79.899 Other long term (current) drug therapy; Z98.84 Bariatric surgery status; Z82.49 Family history of ischemic heart disease and other diseases of the circulatory system
CPT/HCPCS: 36415; 71275; 75635; 76705; 80053; 80061; 81001; 82150; 82550; 82553; 83690; 83735; 84484; 85025; 85610; 85730; 87040; 87077; 87086; 87186; 93005; 93306; 94760; 96365; 96366; 96374; 96375; 96376; 99285

== ENCOUNTER 2017-02-20 08:12 | Day surgery (SDC) | payer MEDICARE ==
--- NOTE | 2017-02-20 08:02 | P.GSHP ---
History of Present Illness H&P Date: 02/20/17 CHIEF COMPLAINT: Painful abdominal wall lesion, right flank. HISTORY OF PRESENT ILLNESS: The patient is a 67 year-old female who presents with a palpable nodule of the right flank. She reports in the last several months, the nodule has become increasingly uncomfortable. She presents today for surgical excision. PAST MEDICAL HISTORY: Please see list. PAST SURGICAL HISTORY: Please see list. MEDICATIONS: Please see list. ALLERGIES: Please see list. SOCIAL HISTORY: No illicit drug use FAMILY HISTORY: No reports of Crohn disease or ulcerative colitis. REVIEW OF ORGAN SYSTEMS: CONSTITUTIONAL: No reports of fevers or chills. GI: Denies any blood in stools or constipation. PHYSICAL EXAM: VITAL SIGNS: Stable Musculoskeletal: No clubbing cyanosis or edema. SKIN: Right flank subcutaneous tumor 4 x 3 cm. GENERAL: Well developed and in no acute distress. Pleasant. HEENT: No sclera icterus. Extraocular movements grossly intact. Moist buccal mucosa. Head is atraumatic, normocephalic. Hears conversational speech. No nasal drainage. NECK: Supple without lymphadenopathy. No JV distention. CHEST: Non-labored respirations and equal bilateral excursions. CARDIOVASCULAR: Regular rate and rhythm. Palpable 2+ radial pulses. ABDOMEN: Soft. Non-tender. Nondistended. NEUROLOGIC: No focal or lateralizing signs. PSYCH: Appropriate affect. Alert and oriented to person, place and time. ASSESSMENT: 1. Abdominal wall tumor, right flank. PLAN: 1. Will proceed of excision of abdominal wall subcutaneous tumor. 2. DVT prophylaxis. 3. Antibiotic prophylaxis. Past Medical History Past Medical History: GERD/Reflux, Hyperlipidemia, Hypertension, Osteoarthritis (OA), Sleep Apnea/CPAP/BIPAP Additional Past Medical History / Comment(s): No longer uses CPAP for sleep apnea, constipation, gallbladder attacks- removed in 1984 History of Any Multi-Drug Resistant Organisms: None Reported Past Surgical History: Back Surgery, Bariatric Surgery, Cholecystectomy, Hernia Repair, Tubal Ligation Additional Past Surgical History / Comment(s): 06/05/16 Panniculectomy, incisional ventral hernia repair. Other surgical hx: EGD,COLONOSCOPY, gastric Sleeve, revision of PANNICULECTOMY 06/19/16 Past Anesthesia/Blood Transfusion Reactions: Postoperative Nausea & Vomiting ( PONV) Past Psychological History: Depression Additional Psychological History / Comment(s): Pt resides with her spouse. She is independent. Smoking Status: Never smoker Past Alcohol Use History: Occasional Additional Past Alcohol Use History / Comment(s): 1-2 x /week Past Drug Use History: None Reported - Past Family History Father Family Medical History: Diabetes Mellitus Mother Family Medical History: Congestive Heart Failure (CHF), Diabetes Mellitus, Hypertension Medications and Allergies Home Medications Medication Instructions Recorded Confirmed Type Potassium Gluconate 99 mg PO SUTUTHSA 12/18/13 02/01/17 History Zolpidem Tartrate 5 mg PO HS PRN 12/19/13 02/01/17 History Cetirizine HCl [Zyrtec] 10 mg PO DAILY 12/29/15 02/01/17 History diphenhydrAMINE [Benadryl] 25 mg PO HS 12/29/15 02/01/17 History Furosemide [Lasix] 40 mg PO DAILY 05/31/16 02/01/17 History Multivitamins, Thera [Multivitamin 1 tab PO DAILY 05/31/16 02/01/17 History (formulary)] Calcium Carbonate/Vitamin D3 1 tab PO BID 02/01/17 02/01/17 History [Calcium 600-Vit D3 200 Tablet] Escitalopram [Lexapro] 20 mg PO DAILY 02/01/17 02/01/17 History Cedric Red Krill Oil 1 tab PO Q48H 02/01/17 02/01/17 History Meloxicam 7.5 mg PO DAILY 02/01/17 02/01/17 History Omeprazole [PriLOSEC] 40 mg PO AC-BID 02/01/17 02/01/17 History Pravastatin Sodium [Pravachol] 20 mg PO DAILY 02/01/17 02/01/17 History Vitamin A 10,000 unit PO DAILY 02/01/17 02/01/17 History amLODIPine BESYLATE/BENAZEPRIL 1 cap PO DAILY 02/01/17 02/01/17 History [Lotrel 5-20 mg Capsule] Allergies Allergy/AdvReac Type Severity Reaction Status Date / Time foaming hand soaps AdvReac Swelling Uncoded 02/01/17 18:32 of eyes
[~2017-02-20 08:12] MED LIST: Pre Op ABX Message 1 EACH MISC MISCELLANE ONE
[2017-02-20] MEDS ORDERED: ceFAZolin 2 GM in SODIUM CHLORIDE 0.9% 100 ML IVPB ONE (08:19)
[2017-02-20 08:26] VITALS: RESP 18; TEMP 98.7
[2017-02-20] MEDS ORDERED: LACTATED RINGERS 1,000 ML IV ONE (08:38)
[2017-02-20] MEDS ORDERED: LIDOCAINE 1% 20 ML VIAL (10MG/ML) FOR IV START INTRADERMA ONE (08:38)
[2017-02-20] MEDS ORDERED: ONDANSETRON 4 MG/2 ML VIAL IVP ONE (08:38)
[2017-02-20] MEDS ORDERED: DEXAMETHASONE SOD PHOS (MDV) 100 MG/10 ML VIAL IVP ONE (08:39)
[2017-02-20] MEDS ORDERED: fentaNYL (PF) 50 MCG/ML 2 ML AMP ONE (09:58)
[2017-02-20] MEDS ORDERED: MIDAZOLAM 2 MG/2 ML VIAL ONE (09:58)
[2017-02-20] MEDS ORDERED: PROPOFOL 10 MG/ML 20 ML VIAL IV ONE (09:58)
[2017-02-20] MEDS ORDERED: KETAMINE 10 MG/ML 20 ML VIAL ONE (09:58)
[2017-02-20] MEDS ORDERED: LIDOCAINE 1% INJ 10MG/ML (20 ML MDV) ONE (09:58)
[2017-02-20] MEDS ORDERED: BUPIVACAIN-EPI 0.5%-1:200,000 30 ML VIAL SQ ONE (10:27)
[2017-02-20] MEDS ORDERED: HYDROcodone/APAP 5-325MG 1 EACH TAB PO PRN (11:15)
[2017-02-20] MEDS ORDERED: NALOXONE 0.4 MG/ML 1 ML VIAL IV PRN (11:15)
--- NOTE | 2017-02-20 11:27 | P.PCN ---
Date of Procedure: 02/20/17 Preoperative Diagnosis: Postoperative Diagnosis: Procedure(s) Performed: Implants: Indications for Procedure: Operative Findings: Description of Procedure: SURGEON: NAYA CAMARA MD DROP SHIPMENT CLERK: NONE. PREOPERATIVE DIAGNOSES: 1. Right flank tumor. 2. Left flank tumor. POSTOPERATIVE DIAGNOSES: 1. Right flank tumor. 2. Left flank tumor. OPERATION: 1. Excision of right flank subcutaneous tumor, 6 x 2 cm. 2. Complex closure right flank incision, 6 cm. 3. Excision of left flank subcutaneous tumor, 5 x 3 cm. 4. Complex closure left flank incision, 5 cm. ANESTHESIA: MAC with 0.5% Marcaine with epinephrine. ESTIMATED BLOOD LOSS: 10 mL. SPECIMENS REMOVED: 1. Right flank subcutaneous tumor 2. Left flank subcutaneous tumor COMPLICATIONS: None. INDICATIONS: The patient is a 67-year-old female who presents with left flank subcutaneous tumor included right flank subcutaneous tumor. Surgical options, including excision was discussed. Benefits and risks were described. Informed consent was obtained. DESCRIPTION OF PROCEDURE: Patient was brought into the operating room, laid in left lateral decubitus position. After adequate IV sedation, the abdomen was prepped and draped in standard sterile fashion using ChloraPrep. A timeout protocol was confirmed with the surgical team regarding patient's name including procedures to be performed. Preoperative medications was administered. Next, field block using a 15 mL of 0.5% Marcaine was administered. The right flank mass was measured using a ruler with borders marked with indelible marker. An elliptical incision of 6 x 2 cm in size into the dermis followed by circumferential dissection using electro-Bovie cautery into the deep subcutaneous tissue. Hemostasis was checked with electrocautery cautery. The wound was closed in multiple layers including 0 Vicryl for the deep subcutaneous tissue. 3-0 Vicryl was placed interrupted along the deep dermis. The skin was closed using 4-0 Monocryl. Dermabond tape including liquid was used as the final fourth layer. The skin was cleansed. Optifoam dressing was placed. Attention was now placed to the left flank. The patient was repositioned along the right lateral decubitus position. Next, field block using a 15 mL of 0.5% Marcaine was administered. The left flank mass was measured using a ruler with borders marked with indelible marker. An elliptical incision of 5 x 3 cm in size into the dermis followed by circumferential dissection using electro-Bovie cautery into the deep subcutaneous tissue. Hemostasis was checked with electrocautery cautery. The wound was closed in multiple layers including 0 Vicryl for the deep subcutaneous tissue. 3-0 Vicryl was placed interrupted along the deep dermis. The skin was closed using 4-0 Monocryl. Dermabond tape including liquid was used as the final fourth layer.The skin was cleansed. Optifoam dressing was placed. At the end of the procedure, needle, sponge, and instrument count had been verified correct by the train control technician. The patient was taken to the postanesthesia care unit in stable condition. FINDINGS: 1. Left flank tumor, 5 x 3 cm extension into deep subcutaneous tissue. 2. Right flank tumor, 6 x 2 cm extension into deep subcutaneous tissue. Plan - Discharge Summary New Discharge Prescriptions: New Hydrocodone/Acetaminophen [[place] 5-325] 1 - 2 each PO Q6HR PRN #15 tab PRN Reason: Pain No Action Potassium Gluconate 99 mg PO SUTUTHSA Zolpidem Tartrate 5 mg PO HS PRN PRN Reason: Insomnia diphenhydrAMINE [Benadryl] 25 mg PO HS Cetirizine HCl [Zyrtec] 10 mg PO DAILY Furosemide [Lasix] 40 mg PO DAILY Multivitamins, Thera [Multivitamin (formulary)] 1 tab PO DAILY Vitamin A 10,000 unit PO DAILY Pravastatin Sodium [Pravachol] 20 mg PO DAILY Omeprazole [PriLOSEC] 40 mg PO AC-BID Meloxicam 7.5 mg PO DAILY Cedric Red Krill Oil 1 tab PO Q48H Escitalopram [Lexapro] 20 mg PO DAILY Calcium Carbonate/Vitamin D3 [Calcium 600-Vit D3 200 Tablet] 1 tab PO BID amLODIPine BESYLATE/BENAZEPRIL [Lotrel 5-20 mg Capsule] 1 cap PO DAILY Discharge Medication List Potassium Gluconate 99 mg PO SUTUTHSA 12/18/13 [History] Zolpidem Tartrate 5 mg PO HS PRN 12/19/13 [History] Cetirizine HCl [Zyrtec] 10 mg PO DAILY 12/29/15 [History] diphenhydrAMINE [Benadryl] 25 mg PO HS 12/29/15 [History] Furosemide [Lasix] 40 mg PO DAILY 05/31/16 [History] Multivitamins, Thera [Multivitamin (formulary)] 1 tab PO DAILY 05/31/16 [History ] Calcium Carbonate/Vitamin D3 [Calcium 600-Vit D3 200 Tablet] 1 tab PO BID [History] Escitalopram [Lexapro] 20 mg PO DAILY 02/01/17 [History] Cedric Red Krill Oil 1 tab PO Q48H 02/01/17 [History] Meloxicam 7.5 mg PO DAILY 02/01/17 [History] Omeprazole [PriLOSEC] 40 mg PO AC-BID 02/01/17 [History] Pravastatin Sodium [Pravachol] 20 mg PO DAILY 02/01/17 [History] Vitamin A 10,000 unit PO DAILY 02/01/17 [History] amLODIPine BESYLATE/BENAZEPRIL [Lotrel 5-20 mg Capsule] 1 cap PO DAILY 02/01/17 [History] Hydrocodone/Acetaminophen [[place] 5-325] 1 - 2 each PO Q6HR PRN #15 tab 02/20/17 [Rx] Follow up Appointment(s)/Referral(s): Naya Camara MD [STAFF PHYSICIAN] - 02/22/17 10:00 am ([facility]) Patient Instructions/Handouts: Abdominal Binder (DC) Activity/Diet/Wound Care/Special Instructions: No lifting over 4 pounds in 2 weeks. May shower. No baths or soaks Discharge Disposition: HOME SELF-CARE
--- NOTE | 2017-02-20 11:28 | P.HPADDEND ---
H&P Addendum H&P Addendum Date: 02/20/17 Patient also reports of left flank tumor with additional discomfort. She is also requesting excision. Procedure includes excision of left and right flank tumors.
[2017-02-20 11:38] VITALS: BP 135/79; PULSE 97
== END 2017-02-20 11:55 | disposition home or self-care (01) ==
LOC: OR 08:12
PROVIDERS: ATTEND Surgery Plastic and Reconstructive Surgery
DX: L92.8 Other granulomatous disorders of the skin and subcutaneous tissue (principal); K21.9 Gastro-esophageal reflux disease without esophagitis; E78.5 Hyperlipidemia, unspecified; I10 Essential (primary) hypertension; G47.33 Obstructive sleep apnea (adult) (pediatric); Z98.84 Bariatric surgery status; Z79.899 Other long term (current) drug therapy; F32.9 Major depressive disorder, single episode, unspecified
CPT/HCPCS: 88304; 11406 ×2; J2250; J0690; J2405; J2001; J3010; J1100; J2704

== ENCOUNTER → 2017-02-22 | Outpatient (CLI) | payer MEDICARE ==
[2017-02-22 11:54] VITALS: BP 157/92; PULSE 54; RESP 20; TEMP 97.9; BMI 27.8
--- NOTE | 2017-04-07 22:08 | P.PN ---
Progress Note - Text DATE OF SERVICE: 02/22/2017 CHIEF COMPLAINT: Follow-up excision of flank tumor. HISTORY OF PRESENT ILLNESS: Ms. Arleth Paredes is a very pleasant 67-year-old female who is status post sleeve gastrectomy 04/28/2014. She is 3 years out. Her heaviest weight for a 5-foot, 6 inch frame was 263-pound. Body mass index was 42.5. Today she comes in weighing 172 pounds. She has actually pounds since her last visit. Percent excess weight loss is 84%. Her total weight loss is 91 pounds. She is status post excision of a right flank tumor, 02/20/2017. No reports of increased pain. No signs of infection. PHYSICAL EXAM: VITAL SIGNS: height of 5 feet 6 inches, 172 pounds. Body mass index of 28.7. GENERAL: Well developed and in no acute distress. Pleasant. HEENT: No sclera icterus. Extraocular movements grossly intact. Moist buccal mucosa. Head is atraumatic, normocephalic. Hears conversational speech. No nasal drainage. NECK: Supple without lymphadenopathy. No JV distention. CHEST: Non-labored respirations and equal bilateral excursions. CARDIOVASCULAR: Regular rate and rhythm. Palpable 2+ radial pulses. ABDOMEN: Soft, nontender. Nondistended. Dressing along the right flank is clean dry and intact. No signs of infection or cellulitis. MUSCULOSKELETAL: No clubbing, cyanosis or edema. NEUROLOGIC: No focal or lateralizing signs. PSYCH: Appropriate affect. Alert and oriented to person, place and time. SKIN: Good skin turgor. Well perfused. ASSESSMENT: 1. Morbid obesity due to exogenous caloric intake, now resolved. 2. Body mass reduced from 42.5 to 27.8. 3. Status post sleeve gastrectomy. 4. History of right flank tumor. PLAN: 1. Her external dressing was discontinued however her Dermabond tape is still present. 2. Follow-up in the office in 2 weeks. 3. Activity as tolerated.
== END | disposition home or self-care (01) ==
LOC: BARWHC3 10:11
PROVIDERS: ATTEND Surgery Plastic and Reconstructive Surgery
DX: Z09 Encounter for follow-up examination after completed treatment for conditions other than malignant neoplasm (principal); Z98.84 Bariatric surgery status
CPT/HCPCS: 99211

== ENCOUNTER → 2017-03-06 | Outpatient (CLI) | payer MEDICARE ==
[2017-03-06 09:28] LABS: CH 32.3; CHCM 34.2; HCT 37.9 % (34.0-46.0); HDW 2.38; MCH 32.5 pg (25.0-35.0); MCHC 34.3 g/dL (31.0-37.0); MCV 94.8 fL (80.0-100.0); Mean Platelet Volume 6.7; RDW 12.4 % (11.5-15.5); WBC 5.5 k/uL (3.8-10.6)
[2017-03-06 09:33] LABS: ALT 30 U/L (9-52); AST 27 U/L (14-36); Alkaline Phosphatase 73 U/L (38-126); Amylase 47 U/L (30-110); Anion Gap 8 mmol/L; Blood Urea Nitrogen 10 mg/dL (7-17); Calcium 9.2 mg/dL (8.4-10.2); Carbon Dioxide 29 mmol/L (22-30); Chloride 105 mmol/L (98-107); Cholesterol 180 mg/dL (<200); Glucose 90 mg/dL (74-99); HDL Cholesterol 59 mg/dL (40-60); Non-African American GFR(MDRD) >60 (>60 ml/min/1.73 sqM); Potassium 4.1 mmol/L (3.5-5.1); Sodium 142 mmol/L (137-145); Total Bilirubin 0.4 mg/dL (0.2-1.3)
== END | disposition home or self-care (01) ==
LOC: LABWHC1 09:03
PROVIDERS: ATTEND Surgery Plastic and Reconstructive Surgery
DX: I11.9 Hypertensive heart disease without heart failure (principal); E78.2 Mixed hyperlipidemia; K21.0 Gastro-esophageal reflux disease with esophagitis; R10.11 Right upper quadrant pain
CPT/HCPCS: 36415; 80053; 80061; 82150; 83690; 84439; 84443; 85027

== ENCOUNTER 2017-03-17 18:59 | Emergency (ER) | payer MEDICARE ==
[2017-03-17 19:06] VITALS: RESP 18
[2017-03-17 19:45] LABS: Basophils % (A) 0 %; CH 33.7; CHCM 35.4; Eosinophils # (A) 0.1 k/uL (0-0.7); Eosinophils % (A) 2 %; HCT 36.8 % (34.0-46.0); HDW 2.27; HGB 12.6 gm/dL (11.4-16.0); Luc # (Auto) 0.12; Luc % (Auto) 2; Lymphocytes # (A) 0.9 k/uL (1.0-4.8); Lymphocytes % (A) 12 %; MCH 32.6 pg (25.0-35.0); MCHC 34.1 g/dL (31.0-37.0); MCV 95.4 fL (80.0-100.0); Mean Platelet Volume 7.3; Monocytes # (A) 0.4 k/uL (0-1.0); Monocytes % (A) 5 %; Neutrophils % (A) 79 %; RBC 3.86 m/uL (3.80-5.40); WBC 7.6 k/uL (3.8-10.6); WBC (Perox) 7.69
[2017-03-17 19:57] LABS: ALT 23 U/L (9-52); AST 24 U/L (14-36); Alkaline Phosphatase 82 U/L (38-126); Anion Gap 9 mmol/L; Blood Urea Nitrogen 15 mg/dL (7-17); Calcium 9.1 mg/dL (8.4-10.2); Carbon Dioxide 25 mmol/L (22-30); Chloride 103 mmol/L (98-107); Glucose 189 mg/dL (74-99); Non-African American GFR(MDRD) >60 (>60 ml/min/1.73 sqM); Potassium 3.7 mmol/L (3.5-5.1); Sodium 137 mmol/L (137-145); Total Bilirubin 0.4 mg/dL (0.2-1.3)
--- NOTE | 2017-03-17 19:58 | ED ---
Wound/Laceration HPI - General Chief Complaint: Wound/Laceration Stated Complaint: Post Op/Poss infection Time Seen by Provider: 03/17/17 19:21 Source: patient, RN notes reviewed Mode of arrival: ambulatory Limitations: no limitations - History of Present Illness Initial Comments: This is a 67-year-old female who had a surgical procedure done on February 20 of this year who states over last couple days she's had some itching and erythema near the surgical site. She also notes another strip anterior to this. She has had chills she denies any fever at home nausea vomiting cough dysuria or other symptoms. - Related Data Home Medications Medication Instructions Recorded Confirmed Potassium Gluconate 99 mg PO SUTUTHSA 12/18/13 02/22/17 Zolpidem Tartrate 5 mg PO HS PRN 12/19/13 02/22/17 Cetirizine HCl [Zyrtec] 10 mg PO DAILY 12/29/15 02/22/17 diphenhydrAMINE [Benadryl] 25 mg PO HS 12/29/15 02/22/17 Furosemide [Lasix] 40 mg PO DAILY 05/31/16 02/22/17 Multivitamins, Thera [Multivitamin 1 tab PO DAILY 05/31/16 02/22/17 (formulary)] Calcium Carbonate/Vitamin D3 1 tab PO BID 02/01/17 02/22/17 [Calcium 600-Vit D3 200 Tablet] Escitalopram [Lexapro] 20 mg PO DAILY 02/01/17 02/22/17 Cedric Red Krill Oil 1 tab PO Q48H 02/01/17 02/22/17 Meloxicam 7.5 mg PO DAILY 02/01/17 02/22/17 Omeprazole [PriLOSEC] 40 mg PO AC-BID 02/01/17 02/22/17 Pravastatin Sodium [Pravachol] 20 mg PO DAILY 02/01/17 02/22/17 Vitamin A 10,000 unit PO DAILY 02/01/17 02/22/17 amLODIPine BESYLATE/BENAZEPRIL 1 cap PO DAILY 02/01/17 02/22/17 [Lotrel 5-20 mg Capsule] [place]-3 Fatty Acids [[place]-3] 1,000 mg PO DAILY 02/22/17 02/22/17 Previous Rx's Medication Instructions Recorded Cephalexin [Keflex] 500 mg PO Q12HR #20 cap 03/17/17 hydrOXYzine HCL [Atarax] 25 mg PO TID PRN #20 tab 03/17/17 Allergies Allergy/AdvReac Type Severity Reaction Status Date / Time foaming hand soaps AdvReac Swelling Uncoded 02/22/17 17:03 of eyes Review of Systems ROS Statement: Those systems with pertinent positive or pertinent negative responses have been documented in the HPI. ROS Other: All systems not noted in ROS Statement are negative. Past Medical History Past Medical History: GERD/Reflux, Hyperlipidemia, Hypertension, Osteoarthritis (OA), Sleep Apnea/CPAP/BIPAP Additional Past Medical History / Comment(s): No longer uses CPAP for sleep apnea, constipation, gallbladder attacks- removed in 1984 History of Any Multi-Drug Resistant Organisms: None Reported Past Surgical History: Back Surgery, Bariatric Surgery, Cholecystectomy, Hernia Repair, Tubal Ligation Additional Past Surgical History / Comment(s): 06/05/16 Panniculectomy, incisional ventral hernia repair. Other surgical hx: EGD,COLONOSCOPY, gastric Sleeve, revision of PANNICULECTOMY 06/19/16 Past Anesthesia/Blood Transfusion Reactions: Postoperative Nausea & Vomiting ( PONV) Past Psychological History: Depression Smoking Status: Never smoker Past Alcohol Use History: None Reported Past Drug Use History: None Reported - Past Family History Father Family Medical History: Diabetes Mellitus Mother Family Medical History: Congestive Heart Failure (CHF), Diabetes Mellitus, Hypertension General Exam - General Exam Comments Initial Comments: This is a well-developed well-nourished awake alert oriented 3 female Limitations: no limitations General appearance: alert, in no apparent distress Head exam: Present: atraumatic, normocephalic, normal inspection Eye exam: Present: normal appearance, PERRL, EOMI. Absent: scleral icterus, conjunctival injection, periorbital swelling ENT exam: Present: normal exam, mucous membranes moist Neck exam: Present: normal inspection. Absent: tenderness, meningismus, lymphadenopathy Respiratory exam: Present: normal lung sounds bilaterally. Absent: respiratory distress, wheezes, rales, rhonchi, stridor Cardiovascular Exam: Present: regular rate, normal rhythm, normal heart sounds. Absent: systolic murmur, diastolic murmur, rubs, gallop, clicks GI/Abdominal exam: Present: soft, other (Examination of the right flank demonstrates a area around the surgical site approximately 7.5 x 2.5 cm is also the area about 7.5 x 2.5 cm anterior to this. No wound dehiscence no fluctuance ) Extremities exam: Present: normal inspection, full ROM, normal capillary refill. Absent: tenderness, pedal edema, joint swelling, calf tenderness Back exam: Present: normal inspection Neurological exam: Present: alert, oriented X3, CN II-XII intact Psychiatric exam: Present: normal affect, normal mood Skin exam: Present: warm, dry, intact. Absent: normal color Course Vital Signs 03/17/17 03/17/17 03/17/17 19:01 20:11 20:57 Temperature 101.6 F H 100.7 F H Pulse Rate 76 77 Pulse Rate [ 72 Right Pulse Oximetery] Respiratory 18 18 18 Rate Blood Pressure 171/87 148/74 Blood Pressure 152/73 [Right Arm Supine] O2 Sat by Pulse 96 95 98 Oximetry Medical Decision Making - Medical Decision Making I did discuss the findings with the patient she will be placed on Keflex and discharged with follow-up with Dr. Crow who I did discuss case with. - Lab Data Result diagrams: 03/17/17 19:25 03/17/17 19:25 Lab Results 03/17/17 03/17/17 03/17/17 Range/Units 19:25 19:25 19:25 WBC 7.6 (3.8-10.6) k/uL RBC 3.86 (3.80-5.40) m/uL Hgb 12.6 (11.4-16.0) gm/dL Hct 36.8 (34.0-46.0) % MCV 95.4 (80.0-100.0) fL MCH 32.6 (25.0-35.0) pg MCHC 34.1 (31.0-37.0) g/dL RDW 13.0 (11.5-15.5) % Plt Count 214 (150-450) k/uL Neutrophils % 79 % Lymphocytes % 12 % Monocytes % 5 % Eosinophils % 2 % Basophils % 0 % Neutrophils # 6.0 (1.3-7.7) k/uL Lymphocytes # 0.9 L (1.0-4.8) k/uL Monocytes # 0.4 (0-1.0) k/uL Eosinophils # 0.1 (0-0.7) k/uL Basophils # 0.0 (0-0.2) k/uL PT (9.0-12.0) sec INR (<1.2) APTT (22.0-30.0) sec Sodium 137 (137-145) mmol/L Potassium 3.7 (3.5-5.1) mmol/L Chloride 103 (98-107) mmol/L Carbon Dioxide 25 (22-30) mmol/L Anion Gap 9 mmol/L BUN 15 (7-17) mg/dL Creatinine 0.70 (0.52-1.04) mg/dL Est GFR (MDRD) Af Amer >60 (>60 ml/min/1.73 sqM) Est GFR (MDRD) Non-Af >60 (>60 ml/min/1.73 sqM) Glucose 189 H (74-99) mg/dL Plasma Lactic Acid Ma[place]dra 1.2 (0.7-2.0) mmol/L Calcium 9.1 (8.4-10.2) mg/dL Total Bilirubin 0.4 (0.2-1.3) mg/dL AST 24 (14-36) U/L ALT 23 (9-52) U/L Alkaline Phosphatase 82 (38-126) U/L Total Protein 7.0 (6.3-8.2) g/dL Albumin 4.1 (3.5-5.0) g/dL Urine Color Urine Appearance (Clear) Urine pH (5.0-8.0) Ur Specific [place] (1.001-1.035) Urine Protein (Negative) Urine Glucose (UA) (Negative) Urine Ketones (Negative) Urine Blood (Negative) Urine Nitrite (Negative) Urine Bilirubin (Negative) Urine Urobilinogen (<2.0) mg/dL Ur Leukocyte Esterase (Negative) Urine RBC (0-5) /hpf Urine WBC (0-5) /hpf Ur Squamous Epith Cells (0-4) /hpf Urine Mucus (None) /hpf 03/17/17 03/17/17 Range/Units 19:25 19:36 WBC (3.8-10.6) k/uL RBC (3.80-5.40) m/uL Hgb (11.4-16.0) gm/dL Hct (34.0-46.0) % MCV (80.0-100.0) fL MCH (25.0-35.0) pg MCHC (31.0-37.0) g/dL RDW (11.5-15.5) % Plt Count (150-450) k/uL Neutrophils % % Lymphocytes % % Monocytes % % Eosinophils % % Basophils % % Neutrophils # (1.3-7.7) k/uL Lymphocytes # (1.0-4.8) k/uL Monocytes # (0-1.0) k/uL Eosinophils # (0-0.7) k/uL Basophils # (0-0.2) k/uL PT 10.4 (9.0-12.0) sec INR 1.0 (<1.2) APTT 27.0 (22.0-30.0) sec Sodium (137-145) mmol/L Potassium (3.5-5.1) mmol/L Chloride (98-107) mmol/L Carbon Dioxide (22-30) mmol/L Anion Gap mmol/L BUN (7-17) mg/dL Creatinine (0.52-1.04) mg/dL Est GFR (MDRD) Af Amer (>60 ml/min/1.73 sqM) Est GFR (MDRD) Non-Af (>60 ml/min/1.73 sqM) Glucose (74-99) mg/dL Plasma Lactic Acid [place] (0.7-2.0) mmol/L Calcium (8.4-10.2) mg/dL Total Bilirubin (0.2-1.3) mg/dL AST (14-36) U/L ALT (9-52) U/L Alkaline Phosphatase (38-126) U/L Total Protein (6.3-8.2) g/dL Albumin (3.5-5.0) g/dL Urine Color Yellow Urine Appearance Clear (Clear) Urine pH 6.5 (5.0-8.0) Ur Specific [place] 1.010 (1.001-1.035) Urine Protein Trace H (Negative) Urine Glucose (UA) Negative (Negative) Urine Ketones Negative (Negative) Urine Blood Negative (Negative) Urine Nitrite Negative (Negative) Urine Bilirubin Negative (Negative) Urine Urobilinogen <2.0 (<2.0) mg/dL Ur Leukocyte Esterase Trace H (Negative) Urine RBC 1 (0-5) /hpf Urine WBC 2 (0-5) /hpf Ur Squamous Epith Cells <1 (0-4) /hpf Urine Mucus Rare H (None) /hpf - Radiology Data Radiology results: report reviewed (I did review the imaging and reports no acute findings.), image reviewed Disposition Clinical Impression: Cellulitis, Localized urticaria, Febrile illness, acute Disposition: HOME SELF-CARE Condition: Good Instructions: Cellulitis (ED), Urticaria (ED) Prescriptions: Cephalexin [Keflex] 500 mg PO Q12HR #20 cap hydrOXYzine HCL [Atarax] 25 mg PO TID PRN #20 tab PRN Reason: Itching Referrals: Shiva Celaya MD [Primary Care Provider] - 1-2 days Naya Camara MD [STAFF PHYSICIAN] - 1-2 days
[2017-03-17 20:14] LABS: Appearance,Urine Clear (Clear); Bilirubin,Urine Negative (Negative); Glucose,Urine (UA) Negative (Negative); Ketones,Urine Negative (Negative); Leukocyte Esterase,Urine Trace (Negative); Mucus,Urine Rare /hpf; Nitrite,Urine Negative (Negative); PH, Urine 6.5 (5.0-8.0); Particle Count 1087; Protein,Urine Trace (Negative); RBC,Urine 1 /hpf (0-5); Squamous Epithelial Cell,Urine <1 /hpf (0-4); UA Billing (MACRO vs. MICRO) MICRO; Urobilinogen,Urine <2.0 mg/dL (<2.0); WBC,Urine 2 /hpf (0-5)
--- NOTE | 2017-03-17 20:36 | XR ---
EXAMINATION TYPE: XR chest 2V DATE OF EXAM: 03/17/2017 COMPARISON: Chest x-ray January 04, 2016. HISTORY: Cough. TECHNIQUE: Frontal and lateral views of the chest are obtained. FINDINGS: There is no focal air space opacity, pleural effusion, or pneumothorax seen. The cardiac silhouette size is within normal limits. The osseous structures are intact. Cholecystectomy clips a re redemonstrated. IMPRESSION: No suspicious acute pulmonary process.
[2017-03-17 20:43] LABS: Prothrombin Time 10.4 sec (9.0-12.0)
[2017-03-17] MEDS ORDERED: ACETAMINOPHEN TAB 500 MG TAB PO STA (20:51)
[2017-03-17 21:20] VITALS: BP 138/64; PULSE 67; TEMP 99.2
== END 2017-03-17 21:20 | disposition home or self-care (01) ==
LOC: EC 18:59
DX: T81.4XXA Infection following a procedure, initial encounter (principal); L03.311 Cellulitis of abdominal wall; L50.9 Urticaria, unspecified; R50.9 Fever, unspecified; K21.9 Gastro-esophageal reflux disease without esophagitis; E78.5 Hyperlipidemia, unspecified; I10 Essential (primary) hypertension; M19.90 Unspecified osteoarthritis, unspecified site; F32.9 Major depressive disorder, single episode, unspecified; Z79.1 Long term (current) use of non-steroidal anti-inflammatories (NSAID); Z79.899 Other long term (current) drug therapy; Z91.09 Other allergy status, other than to drugs and biological substances
CPT/HCPCS: 36415; 71020; 80053; 81001; 83605; 85025; 85610; 85730; 87040; 87086; 99283

== ENCOUNTER → 2017-03-21 | Outpatient (CLI) | payer MEDICARE ==
--- NOTE | 2017-04-14 18:45 | P.PN ---
Progress Note - Text DATE OF SERVICE: 03/21/2017 CHIEF COMPLAINT: Follow-up excision of flank tumor. HISTORY OF PRESENT ILLNESS: Ms. Arleth Paredes is a very pleasant 67-year-old female who is status post sleeve gastrectomy 04/28/2014. She is 3 years out. Her heaviest weight for a 5-foot, 6 inch frame was 263-pound. Body mass index was 42.5. Today she comes in weighing 174 pounds. She has actually gained 3 pounds since her last visit. Percent excess weight loss is 81%. Her total weight loss is 89 pounds. She is status post excision of a right flank tumor, 02/20/2017. She is now 1 month postop. She presented to the ER with acute onset redness 2 days ago along the right lateral chest wall erythema with itching. She was seen in the ER where she was given medications for presumed cellulitis. Now her symptoms are resolving. No reports of increased pain. PHYSICAL EXAM: VITAL SIGNS: height of 5 feet 6 inches, 174 pounds. Body mass index of 28.2. Vital Signs Temp 98.3 F 03/21/17 16:07 Pulse 61 03/21/17 16:07 Resp BP 147/76 03/21/17 16:07 Pulse Ox GENERAL: Well developed and in no acute distress. Pleasant. HEENT: No sclera icterus. Extraocular movements grossly intact. Moist buccal mucosa. Head is atraumatic, normocephalic. Hears conversational speech. No nasal drainage. NECK: Supple without lymphadenopathy. No JV distention. CHEST: Non-labored respirations and equal bilateral excursions. CARDIOVASCULAR: Regular rate and rhythm. Palpable 2+ radial pulses. ABDOMEN: Soft, nontender. Nondistended. MUSCULOSKELETAL: No clubbing, cyanosis or edema. NEUROLOGIC: No focal or lateralizing signs. PSYCH: Appropriate affect. Alert and oriented to person, place and time. SKIN: Well-healed flank incision. Erythema along left chest sidewall resolving. ASSESSMENT: 1. Morbid obesity due to exogenous caloric intake, now resolved. 2. Body mass reduced from 42.5 to 28.2. 3. Status post sleeve gastrectomy. 4. History of right flank tumor. 5. ALLERGIC reaction with contact dermatitis, right flank. PLAN: 1. She should complete her medications as prescribed by the emergency room provider. 2. No surgical intervention needed at this time. 3. Follow-up as needed as her symptoms are resolving. 4. Activities as tolerated.
== END | disposition home or self-care (01) ==
CPT/HCPCS: 99211

== ENCOUNTER → 2017-04-25 | Outpatient (CLI) | payer MEDICARE ==
[2017-04-25 12:41] LABS: Hemoglobin A1C 5.2 % (4.2-6.1)
== END | disposition home or self-care (01) ==
LOC: LABWHC1 10:02
PROVIDERS: ATTEND Internal Medicine
DX: E11.9 Type 2 diabetes mellitus without complications (principal)
CPT/HCPCS: 36415; 82947; 83036

== ENCOUNTER → 2017-05-29 | Outpatient (CLI) | payer MEDICARE ==
--- NOTE | 2017-05-29 10:14 | WWHP ---
[facility] - HISTORY AND PHYSICAL DATE OF DICTATION: 05/29/2017 CHIEF COMPLAINT: The patient is here for her routine gynecologic exam and mammogram. HPI: This is a 67-year-old G3, P3 with an LMP of 2009. The patient is without gynecologic complaints and denies any postmenopausal vaginal bleeding. She states she has noticed some small amount of blood from the area posterior to the rectal opening. She states she can notice at times other than bowel movements or wiping. She did have a colonoscopy last year. PAST MEDICAL HISTORY: Chronic hypertension, elevated cholesterol and gastroesophageal reflux disease. Seasonal allergies, arthritis, depression, anxiety, and chronic knee problems. MEDICATIONS: 1. Pravastatin 40 mg half-tablet daily. 2. Meloxicam 15 mg a half-tablet daily. 3. Lotrel generic 5/20 one daily. 4. Lexapro generic 20 mg daily. 5. Omeprazole 20 mg b.i.d. 6. Ambien generic 10 mg half-tablet daily. 7. Lasix generic 40 mg daily. 8. Benadryl 25 mg at bedtime. 9. Zyrtec 10 mg q.a.m. 10.Vitamin A 10.000 units daily. 11.[place]-3 supplement 100,100 mg daily. 12.[place]-3 Krill oil 300 mg every other day. 13.Calcium with vitamin D 600 mg b.i.d. 14.Multivitamin daily. 15.Potassium supplement 4 times weekly. ALLERGIES: No known drug allergies. PAST SURGICAL HISTORY: Back surgery x2, cholecystectomy, tubal ligation, bariatric sleeve in 2012, colonoscopy 2008 and 2015 and panniculectomy abdominoplasty 2015. PAST [employer] HISTORY: She has no history of STDs and has been menopausal since 2009. She had a benign endometrial biopsy 2015. SOCIAL HISTORY: She denies tobacco and drug use and has 2 to 4 alcohol-containing drinks per week. She has been since 1997 and this is her 2nd marriage. She goes to [place] for the mims. REVIEW OF SYSTEMS: She has lost about 3 pounds over the last year. She denies respiratory, cardiac or GI problems. She denies maltreatment or falling. : She has occasional slight urinary leakage. She has also noticed that her urine is occasionally cloudy and occasionally has burning with urination. PHYSICAL EXAM: Blood pressure 138/94, height 5 feet 7-1/2 inches, weight 178 pounds, BMI 28. Temperature 98.4, pulse 64. This is a well-developed, well-nourished, white female, who is alert and oriented x3, in no acute distress. HEENT is within normal limits. NECK: Supple without mass or thyromegaly. CHEST AND LUNGS: Clear to auscultation. HEART: Regular rate and rhythm. Breasts are without mass or discharge. Axillary exam is negative for adenopathy. Back negative for CVA tenderness. ABDOMEN: Soft, nontender, without palpable masses. She is status post abdominoplasty. PELVIC EXAM: External genitalia reveals [id number] atrophy without lesions. Cervix and vagina reveals mild atrophy without lesions. There is no evidence of prolapse. Bimanual exam, uterus is mid-position, nongravid size and nontender. There are no palpable adnexal masses or tenderness. Rectovaginal exam is negative for mass or tenderness and is negative for occult blood. There is a posterior midline fissure that extends from the anus to the skin just posterior to the anus. This is currently not bleeding, but is slightly red and seems to be the area she is talking about when she has noticed a small amount of blood. EXTREMITIES: Nontender. IMPRESSION: 1. A 67-year-old menopausal female with normal gynecologic exam. 2. Occasional urinary dysuria and cloudy urine per the patient. 3. Intermittent bleeding from the skin posterior to the rectal opening, which is probably secondary to a slight fissure and cracked skin posterior to the anus. She had a recent colonoscopy. PLAN: 1. Pap smear was deferred since she had a normal one last year. 2. Self breast examination was discussed. 3. Mammogram will be done today. 4. UA and C&S will be obtained from the patient. 5. The patient is given a prescription for Kenalog 0.1% cream which she will use b.i.d. for the next 2 weeks on the area posterior to the anus. After that, she will use petroleum jelly as a protective layer. She can follow up if her symptoms are not improving. 6. I have suggested a flu shot in the fall, which she has declined and she states she does not get flu shots. 7. She will return in 1 year. MMODL / IJN: [id number] /
[2017-05-29 17:50] LABS: Appearance,Urine Clear (Clear); Bilirubin,Urine Negative (Negative); Blood,Urine Negative (Negative); Color,Urine Colorless; Glucose,Urine (UA) Negative (Negative); Ketones,Urine Negative (Negative); Leukocyte Esterase,Urine Negative (Negative); Nitrite,Urine Negative (Negative); Protein,Urine Negative (Negative); Specific Gravity,Urine 1.005 (1.001-1.035); Urobilinogen,Urine <2.0 mg/dL (<2.0)
--- NOTE | 2017-05-30 12:53 | MM ---
Reason for exam: screening (asymptomatic). Last mammogram was performed 1 year and 11 months ago. History: Patient is postmenopausal. Benign right mammotome panel of the right breast, April 20, 2008. Took hormonal contraceptives for 6 months beginning at age 19. Physical Findings: A clinical breast exam by your physician is recommended on an annual basis and results should be correlated with mammographic findings. MG 3D Screening Mammo W/Cad Bilateral CC and MLO view(s) were taken. Prior study comparison: July 02, 2015, bilateral MG screening mammo w CAD. May 02, 2013, bilateral digital screening mammo w/CAD. January 03, 2012, CAD bilateral diagnostic mammogram. The breast tissue is heterogeneously dense. This may lower the sensitivity of mammography. Finding: There are typically benign round calcifications scattered in both breasts, right greater than left. Previous mammotome biopsy in the right breast. Asymmetric breast tissue left outer quadrant stable, and right breast anterior central aspect stable. ASSESSMENT: Benign, BI-RAD 2 RECOMMENDATION: Routine screening mammogram of both breasts in 1 year.
== END | disposition home or self-care (01) ==
LOC: WWCWWP 08:02
PROVIDERS: ATTEND Obstetrics & Gynecology
DX: Z12.31 Encounter for screening mammogram for malignant neoplasm of breast (principal); R30.0 Dysuria
CPT/HCPCS: 81003; 87086; 77063; G0202

== ENCOUNTER → 2017-07-05 | Outpatient (CLI) | payer MEDICARE ==
[2017-07-05 10:25] LABS: CH 30.7; CHCM 32.6; HCT 40.8 % (34.0-46.0); HDW 2.26; HGB 13.3 gm/dL (11.4-16.0); MCH 30.9 pg (25.0-35.0); MCHC 32.6 g/dL (31.0-37.0); MCV 94.6 fL (80.0-100.0); Mean Platelet Volume 7.3; RBC 4.32 m/uL (3.80-5.40); RDW 13.4 % (11.5-15.5); WBC 6.6 k/uL (3.8-10.6)
[2017-07-05 10:33] LABS: ALT 28 U/L (9-52); AST 29 U/L (14-36); Alkaline Phosphatase 84 U/L (38-126); Anion Gap 6 mmol/L; Blood Urea Nitrogen 11 mg/dL (7-17); Calcium 9.7 mg/dL (8.4-10.2); Carbon Dioxide 32 mmol/L (22-30); Chloride 103 mmol/L (98-107); Cholesterol 211 mg/dL (<200); Glucose 92 mg/dL (74-99); HDL Cholesterol 63 mg/dL (40-60); Non-African American GFR(MDRD) >60 (>60 ml/min/1.73 sqM); Potassium 4.1 mmol/L (3.5-5.1); Sodium 141 mmol/L (137-145); Total Bilirubin 0.5 mg/dL (0.2-1.3); Total Protein 7.5 g/dL (6.3-8.2)
== END | disposition home or self-care (01) ==
LOC: LABWHC1 09:56
PROVIDERS: ATTEND Internal Medicine
DX: Z00.01 Encounter for general adult medical examination with abnormal findings (principal); I11.9 Hypertensive heart disease without heart failure; E78.2 Mixed hyperlipidemia; R73.9 Hyperglycemia, unspecified
CPT/HCPCS: 36415; 80053; 80061; 83036; 84439; 84443; 85027

== ENCOUNTER → 2017-12-24 | Outpatient (CLI) | payer MEDICARE ==
[2017-12-24 09:41] LABS: HCT 39.1 % (34.0-46.0); HGB 13.2 gm/dL (11.4-16.0); MCHC 33.6 g/dL (31.0-37.0); Mean Platelet Volume 6.3; Platelet Count 270 k/uL (150-450); RBC 4.12 m/uL (3.80-5.40); RDW 13.3 % (11.5-15.5)
[2017-12-24 10:18] LABS: ALT 34 U/L (9-52); AST 29 U/L (14-36); Albumin 4.5 g/dL (3.5-5.0); Alkaline Phosphatase 68 U/L (38-126); Anion Gap 12 mmol/L; Blood Urea Nitrogen 15 mg/dL (7-17); Calcium 9.6 mg/dL (8.4-10.2); Carbon Dioxide 33 mmol/L (22-30); Chloride 96 mmol/L (98-107); Cholesterol 176 mg/dL (<200); Glucose 90 mg/dL (74-99); HDL Cholesterol 79 mg/dL (40-60); LDL Cholesterol,Calculated 76 mg/dL (0-99); Potassium 4.1 mmol/L (3.5-5.1); Sodium 141 mmol/L (137-145); Total Bilirubin 0.4 mg/dL (0.2-1.3); Total Protein 7.1 g/dL (6.3-8.2); Triglycerides 106 mg/dL (<150)
[2017-12-24 10:31] LABS: T4, Free (Free Thyroxine) 0.99 ng/dL (0.78-2.19)
== END | disposition home or self-care (01) ==
LOC: LABWHC1 09:05
PROVIDERS: ATTEND Internal Medicine
DX: Z00.00 Encounter for general adult medical examination without abnormal findings (principal); I11.9 Hypertensive heart disease without heart failure; E78.2 Mixed hyperlipidemia
CPT/HCPCS: 36415; 80053; 80061; 84439; 84443; 85027

== ENCOUNTER → 2018-05-22 | Outpatient (CLI) | payer MEDICARE ==
[2018-05-22 13:44] VITALS: BP 171/85; PULSE 68; RESP 16; TEMP 97.8; BMI 28.9
--- NOTE | 2018-05-22 13:50 | P.PN ---
Subjective Progress Note Date: 05/22/18 HPI: She comes in 10 pound weight gain from 1 year ago. She had tried [employer]. She reports bladder dripping. ABDOMEN: No panniculitis. ASSESSMENT: 1. Morbid obesity 2. S/p Sleeve gastrectomy. PLAN: 1. Recommend cardio and weight lifting. 2. Watch carbs to prevent weight gain. 3. Get bariatric labs 4. Follow up 1 year Objective - Vital Signs Vital signs: Vital Signs Temp 97.8 F 05/22/18 13:38 Pulse 68 05/22/18 13:38 Resp 16 05/22/18 13:38 BP 171/85 05/22/18 13:38 Pulse Ox Intake & Output 05/21/18 05/22/18 05/22/18 18:59 06:59 18:59 Weight 83.688 kg
== END | disposition home or self-care (01) ==
LOC: BARWHC3 13:03
PROVIDERS: ATTEND Surgery Plastic and Reconstructive Surgery
DX: E66.01 Morbid (severe) obesity due to excess calories (principal); Z98.84 Bariatric surgery status; Z68.28 Body mass index [BMI] 28.0-28.9, adult
CPT/HCPCS: 99211

== ENCOUNTER → 2018-05-23 | Outpatient (CLI) | payer MEDICARE ==
[2018-05-23 17:09] LABS: HCT 39.1 % (34.0-46.0); MCH 31.9 pg (25.0-35.0); MCHC 33.2 g/dL (31.0-37.0); MCV 96.2 fL (80.0-100.0); Mean Platelet Volume 6.7; Platelet Count 274 k/uL (150-450); RBC 4.06 m/uL (3.80-5.40); RDW 12.8 % (11.5-15.5); WBC 5.3 k/uL (3.8-10.6)
[2018-05-23 17:32] LABS: Partial Thromboplastin Time 25.6 sec (22.0-30.0); Prothrombin Time 9.7 sec (9.0-12.0)
[2018-05-24 02:29] LABS: Iron Saturation 14.89 (12.00-45.00)
[2018-05-24 02:39] LABS: Vitamin D 25 Hydroxy 40.2 ng/mL (30.0-100.0)
[2018-05-24 02:46] LABS: Albumin 4.5 g/dL (3.80-4.90); Albumin/Globulin Ratio 2.05 (1.20-2.10); Anion Gap 7.5 mmol/L (4.00-12.00); Calcium 9.3 mg/dL (8.7-10.3); Carbon Dioxide 30.5 mmol/L (21.6-31.8); Globulin 2.2 g/dL (2.1-3.7); Magnesium 1.9 mg/dL (1.5-2.4); Phosphorus 4.8 mg/dL (2.4-5.1); Potassium 4.1 mmol/L (3.5-5.5); Total Bilirubin 0.3 mg/dL (0.3-1.2); Total Protein 6.7 g/dL (6.2-8.2)
[2018-05-24 02:49] LABS: Folate, Serum >24.0 ng/mL
[2018-05-24 06:17] LABS: Hemoglobin A1C 5.3 % (4.0-6.0)
[2018-05-24 15:32] LABS: Zinc, Serum 60 ug/dL (60-130)
[2018-05-27 07:22] LABS: Vitamin B1 97 ug/L (38-122)
[2018-05-27 07:43] LABS: Vitamin A 57 ug/dL (38-106)
== END | disposition home or self-care (01) ==
LOC: LABWHC1 16:11
PROVIDERS: ATTEND Internal Medicine
DX: Z01.818 Encounter for other preprocedural examination (principal); E21.1 Secondary hyperparathyroidism, not elsewhere classified; D50.9 Iron deficiency anemia, unspecified; K90.9 Intestinal malabsorption, unspecified; E44.0 Moderate protein-calorie malnutrition; E55.9 Vitamin D deficiency, unspecified; K74.1 Hepatic sclerosis; N19 Unspecified kidney failure; K50.90 Crohn's disease, unspecified, without complications
CPT/HCPCS: 36415; 80053; 80061; 82306; 82525; 82607; 82728; 82746; 83036; 83540; 83550; 83735; 83970; 84100; 84134; 84255; 84425; 84443; 84590; 84630; 85027; 85610; 85730; 93005

== ENCOUNTER → 2019-06-17 | Outpatient (CLI) | payer MEDICARE ==
[2019-06-17 14:21] VITALS: BP 150/94; PULSE 77; RESP 18; TEMP 98.6
--- NOTE | 2019-06-17 14:58 | P.HPOB ---
History of Present Illness H&P Date: 06/17/19 Chief Complaint: The patient is here for her routine gynecologic exam and ma mmogram. This is a 69-year-old with an LMP of 2009. The patient is without gynecologic complaints and denies any postmenopausal bleeding. Review of Systems She is gained about 7 pounds over the past 2 years.. She denies respiratory, cardiac and G.I. problems. She denies maltreatment or problems with falling. : Occasional slight leakage with coughing or laughing. Past Medical History Past Medical History: GERD/Reflux, Hyperlipidemia, Hypertension, Osteoarthritis (OA), Sleep Apnea/CPAP/BIPAP Additional Past Medical History / Comment(s): No longer uses CPAP for sleep apnea. Seasonal ALLERGIES. History of Any Multi-Drug Resistant Organisms: None Reported Past Surgical History: Back Surgery, Bariatric Surgery, Cholecystectomy, Hernia Repair, Tubal Ligation Additional Past Surgical History / Comment(s): 06/05/16 Panniculectomy, incisional ventral hernia repair. Back surgeryx2 Other surgical hx: EGD, gastric Sleeve, revision of PANNICULECTOMY 06/19/16. Right knee replacement. Colonoscopy 2016(2nd, next after 7-10yrs). Past Anesthesia/Blood Transfusion Reactions: Postoperative Nausea & Vomiting (PONV) Past Psychological History: Anxiety, Depression Additional Psychological History / Comment(s): Pt resides with her spouse. She is independent. Smoking Status: Never smoker Past Alcohol Use History: Occasional (3-4 per week) Past Drug Use History: None Reported Additional History: The patient has been since 1997 and this is her second marriage.She is not sexually active. She goes to [place] for the winter. - Past Family History Father Family Medical History: Diabetes Mellitus Mother Family Medical History: Congestive Heart Failure (CHF), Diabetes Mellitus, Hypertension Additional Family Medical History / Comment(s): Maternal grandmother had cervical cancer. Medications and Allergies Home Medications Medication Instructions Recorded Confirmed Type Zolpidem Tartrate 5 mg PO HS PRN 12/19/13 06/17/19 History Multivitamins, Thera [Multivitamin 1 tab PO DAILY 05/31/16 06/17/19 History (formulary)] Escitalopram [Lexapro] 20 mg PO DAILY 02/01/17 06/17/19 History Pravastatin Sodium [Pravachol] 20 mg PO DAILY 02/01/17 06/17/19 History Vitamin A 2,400 mcg PO DAILY 02/01/17 06/17/19 History Ascorbic Acid [Vitamin C] 1,000 mg PO DAILY 06/03/18 06/17/19 History Cholecalciferol [Vitamin D3] 5,000 unit PO DAILY 06/03/18 06/17/19 History Coconut Oil Tabs 4 tab PO DAILY 06/03/18 06/17/19 History Docusate [Colace] 100 mg PO DAILY 06/03/18 06/17/19 History Esomeprazole Magnesium [NexIUM] 40 mg PO DAILY 06/03/18 06/17/19 History Focus Factor 4 tab PO DAILY 06/03/18 06/17/19 History Hydrochlorothiazide 25 mg PO DAILY 06/03/18 06/17/19 History Meloxicam [Mobic] 7.5 mg PO DAILY 06/03/18 06/17/19 History Potassium 99 mg PO DAILY 06/03/18 06/17/19 History Turmeric Root Extract [Turmeric] 500 mg PO DAILY 06/03/18 06/17/19 History amLODIPine BESYLATE/BENAZEPRIL 1 tab PO DAILY 06/03/18 06/17/19 History [amLODIPine BESYLATE/BENAZEPRIL 5-40 mg] hydrALAZINE HCL 25 mg PO BID 06/03/18 06/17/19 History Allergies Allergy/AdvReac Type Severity Reaction Status Date / Time foaming hand soaps AdvReac Swelling Uncoded 06/17/19 14:22 of eyes Exam Vital Signs Temp Pulse Resp BP Pulse Ox 06/17/19 14:17 98.6 F 77 18 150/94 97 Intake and Output 06/16/19 06/17/19 06/17/19 22:59 06:59 14:59 Other: Weight 83.915 kg Height 5 feet 7 inches, weight 185 pounds, BMI 29.0. This is a well-developed well-nourished white female who is alert and oriented times 3 in no acute distress. HEENT: Within normal limits. NECK: Supple without mass or thyromegaly. CHEST AND LUNGS: Clear to auscultation. HEART: Regular rate and rhythm. BREASTS: Are without mass or discharge. AXILLARY EXAM: Negative for adenopathy. BACK: Negative for CVA tenderness. ABDOMEN: Soft, nontender, without palpable masses. She has abdominal scarring consistent with her previous panniculectomy PELVIC EXAM: Normal external genitalia with mild atrophy. Cervix and vagina appear normal mild atrophy. There is no unusual discharge. There is no evidence of prolapse. The uterus is midposition, nongravid size and nontender. There are no palpable adnexal masses or tenderness. RECTAL EXAM: Rectovaginal exam is negative for mass or tenderness and is negative for occult blood. EXTREMITIES: Nontender. IMPRESSION: 1. 69-year-old menopausal female with normal gynecologic exam. PLAN: 1. Pap smear was performed. If this is negative, it will be repeated in 2-3 years. If they're both negative, we will consider discontinuing Pap smears. 2. Self breast awareness was discussed with the patient. 3. Screening mammogram will be done today. 4. Osteoporosis prevention was discussed. I have stressed the importance of adequate calcium, vitamin D and regular exercise. Recommended amounts of calcium and vitamin D were also discussed. I have recommended repeating the bone density testing since she had a normal one in 2012. She would like to do this at her next well woman visit. 5. She did receive her flu shot this fall. 6. The patient was advised to return in 1-2 years for her well woman examinati on.
--- NOTE | 2019-06-18 09:47 | MM ---
Reason for exam: screening (asymptomatic). Last mammogram was performed 2 years and 1 month ago. History: Patient is postmenopausal. Benign right mammotome panel of the right breast, April 20, 2008. Took hormonal contraceptives for 6 months beginning at age 19. Physical Findings: A clinical breast exam by your physician is recommended on an annual basis and results should be correlated with mammographic findings. MG 3D Screening Mammo W/Cad Bilateral CC, MLO, and XCCL view(s) were taken. Prior study comparison: May 29, 2017, bilateral MG 3d screening mammo w/cad. July 02, 2015, bilateral MG screening mammo w CAD. There are scattered fibroglandular densities. Benign appearing bilateral calcifications. No suspicious abnormality. Right biopsy marker. No significant changes when compared with prior studies. ASSESSMENT: Benign, BI-RAD 2 RECOMMENDATION: Routine screening mammogram of both breasts in 1 year.
== END | disposition home or self-care (01) ==
LOC: WWCWWP 14:12
PROVIDERS: ATTEND Obstetrics & Gynecology
DX: Z12.31 Encounter for screening mammogram for malignant neoplasm of breast (principal)
CPT/HCPCS: 77063; 77067

== ENCOUNTER → 2019-07-02 | Outpatient (CLI) | payer MEDICARE ==
--- NOTE | 2019-07-02 15:20 | P.PN ---
Subjective Progress Note Date: 07/02/19 DATE OF SERVICE: 07/02/2019 CHIEF COMPLAINT: Follow-up sleeve gastrectomy. HISTORY OF PRESENT ILLNESS: Arleth Paredes is a 69 year-old female who is status post sleeve gastrectomy 04/28/2014. She is 5 years out. She feels well. Her weight stable has been stable in 1 year. She had a tummy tuck. She had a knee replacement. No dysphagia. She has gastroesophageal reflux on occasion. She has trouble with her thighs. She reports feeling spacey. Her highest weight in the program was 263 pounds for her 5 feet 6 inches frame. Her ideal body weight is 154 pounds. Today she comes in weighing 184 pounds unchanged in 1 year. She has maintained an 79 pound weight loss. Her percent excess weight loss is 72%. Her body mass index has been reduced from 42.3 down to 29.7. PAST MEDICAL HISTORY: 1. History of morbid obesity, BMI 42. 3 initial 2. Depression. 3. Status post sleeve gastrectomy. 4. Dyslipidemia. 5. Hypertension. PAST SURGICAL HISTORY: 1. Sleeve gastrectomy. 2. Upper endoscopy. 3. Panniculectomy. MEDICATIONS: ALLERGIES: Home Medications Medication Instructions Recorded Confirmed Type Zolpidem Tartrate 5 mg PO HS PRN 12/19/13 06/03/18 History Multivitamins, Thera [Multivitamin 1 tab PO DAILY 05/31/16 06/03/18 History (formulary)] Escitalopram [Lexapro] 20 mg PO DAILY 02/01/17 06/03/18 History Pravastatin Sodium [Pravachol] 20 mg PO DAILY 02/01/17 06/03/18 History Vitamin A 2,400 mcg PO DAILY 02/01/17 06/03/18 History Ascorbic Acid [Vitamin C] 1,000 mg PO DAILY 06/03/18 06/03/18 History Cholecalciferol [Vitamin D3] 5,000 unit PO DAILY 06/03/18 06/03/18 History Coconut Oil Tabs 4 tab PO DAILY 06/03/18 History Docusate [Colace] 100 mg PO DAILY 06/03/18 06/03/18 History Esomeprazole Magnesium [NexIUM] 40 mg PO DAILY 06/03/18 06/03/18 History Focus Factor 4 tab PO DAILY 06/03/18 History Hydrochlorothiazide 25 mg PO DAILY 06/03/18 06/03/18 History Meloxicam [Mobic] 7.5 mg PO DAILY 06/03/18 06/03/18 History Potassium 99 mg PO DAILY 06/03/18 06/03/18 History Turmeric Root Extract [Turmeric] 500 mg PO DAILY 06/03/18 06/03/18 History amLODIPine BESYLATE/BENAZEPRIL 1 tab PO DAILY 06/03/18 06/03/18 History [amLODIPine BESYLATE/BENAZEPRIL 5-40 mg] hydrALAZINE HCL 25 mg PO BID 06/03/18 06/03/18 History Allergies Allergy/AdvReac Type Severity Reaction Status Date / Time foaming hand soaps AdvReac Swelling Uncoded 06/03/18 13:36 of eyes FAMILY HISTORY: Hypertension. SOCIAL HISTORY: No active tobacco abuse. REVIEW OF SYSTEMS: CONSTITUTIONAL: Highest weight of 263 pounds. Body mass index initially 42.5. [place] body weight was 154 pounds. SKIN: No rash. No infection. CARDIOVASCULAR: Moderate improvement of her hypertension including cholesterol. MUSCULOSKELETAL: Improvement of osteoarthritis of lower back and hips including knees. RESPIRATORY: Improvement of obstructive sleep apnea. ENDOCRINE: No reports of hypothyroidism or diabetes. GI: Denies any blood in stools or constipation. NEURO: No seizure disorders or headaches. PSYCH: Has depression without suicidal ideation. HEMATOLOGIC: No personal or family history of DVTs or pulmonary emboli. PHYSICAL EXAM: VITAL SIGNS: 5 foot 6, 184 pounds. Body mass index of 29.7. Vital Signs Temp 98.2 F 07/02/19 15:32 Pulse 91 07/02/19 15:32 Resp BP 155/90 07/02/19 15:32 Pulse Ox GENERAL: Well-developed female in no acute distress. ABDOMEN: No palpable incisional hernias. Soft. Nontender. Nondistended. No panniculitis. SKIN: . Well perfused. Good skin turgor. MUSCULOSKELETAL: No clubbing, cyanosis or edema. HEENT: No scleral icterus. Extraocular movements grossly intact. Moist buccal mucosa. NECK: Supple without lymphadenopathy. CHEST: Unlabored respirations. Equal bilateral excursions. CARDIOVASCULAR: Regular rate and rhythm. Distal 2+ pulses. PSYCH: Appropriate affect. Alert and oriented to person place and time ASSESSMENT: 1. Morbid obesity due to excess caloric intake. 2. Body mass index reduced from 42.5 down to 29.8. 3. Status post sleeve gastrectomy. 4. Resolution of obstructive sleep apnea. 5. Recurrent moderate panniculitis. 6. Osteoarthritis of lower back, improved. 7. Osteoarthritis bilateral knees, improved. 8. Dyslipidemia. 9. Hypertension, resolved. 10. Excess thigh skin PLAN: 1. She has done very well with her weight maintenance. 2. Follow up in 1 year. 3. For her thighs and arms, referral to plastic surgeon. Laboratory Last Values WBC 6.6 k/uL (3.8-10.6) 07/02/19 16:12 RBC 4.18 m/uL (3.80-5.40) 07/02/19 16:12 Hgb 13.4 gm/dL (11.4-16.0) 07/02/19 16:12 Hct 40.1 % (34.0-46.0) 07/02/19 16:12 MCV 96.0 fL (80.0-100.0) 07/02/19 16:12 MCH 32.0 pg (25.0-35.0) 07/02/19 16:12 MCHC 33.3 g/dL (31.0-37.0) 07/02/19 16:12 RDW 12.2 % (11.5-15.5) 07/02/19 16:12 Plt Count 340 k/uL (150-450) 07/02/19 16:12 PT 10.1 sec (9.0-12.0) 07/02/19 16:12 INR 0.9 (<1.2) 07/02/19 16:12 APTT 26.9 sec (22.0-30.0) 07/02/19 16:12 Sodium 139 mmol/L (135-145) 07/02/19 16:12 Potassium 3.6 mmol/L (3.5-5.5) 07/02/19 16:12 Chloride 99 mmol/L (96-109) 07/02/19 16:12 Carbon Dioxide 32.6 mmol/L (21.6-31.8) H 07/02/19 16:12 Anion Gap 7.40 mmol/L (4.00-12.00) 07/02/19 16:12 BUN 13.0 mg/dL (9.0-27.0) 07/02/19 16:12 Creatinine 0.8 mg/dL (0.6-1.5) 07/02/19 16:12 Est GFR (CKD-EPI)AfAm 87.8 (60.0-200.0) 07/02/19 16:12 Est GFR (CKD-EPI)NonAf 75.8 (60.0-200.0) 07/02/19 16:12 BUN/Creatinine Ratio 16.25 Ratio (12.00-20.00) 07/02/19 16:12 Glucose 85 mg/dL (70-110) 07/02/19 16:[address] Glu mg/dL 100 07/02/19 16:12 Hemoglobin A1c 5.1 % (4.0-6.0) 07/02/19 16:12 Calcium 9.4 mg/dL (8.7-10.3) 07/02/19 16:12 Phosphorus 4.1 mg/dL (2.4-5.1) 07/02/19 16:12 Magnesium 1.6 mg/dL (1.5-2.4) 07/02/19 16:12 Iron 76 ug/dL (50-170) 07/02/19 16:12 TIBC 322 ug/dL (228-460) 07/02/19 16:12 % Saturation 23.60 (12.00-45.00) 07/02/19 16:12 Ferritin 54.6 ng/mL (10.0-291.0) 07/02/19 16:12 Total Bilirubin 0.3 mg/dL (0.3-1.2) 07/02/19 16:12 AST 24 U/L (13-35) 07/02/19 16:12 ALT 15 U/L (8-44) 07/02/19 16:12 Alkaline Phosphatase 86 U/L (41-126) 07/02/19 16:12 Total Protein 6.9 g/dL (6.2-8.2) 07/02/19 16:12 Albumin 4.60 g/dL (3.80-4.90) 07/02/19 16:12 Globulin 2.3 g/dL (1.6-3.3) 07/02/19 16:12 Albumin/Globulin Ratio 2.00 g/dL (1.60-3.17) 07/02/19 16:12 Prealbumin 22.0 mg/dL (18.0-42.0) 07/02/19 16:12 Triglycerides 82.0 mg/dL (0.0-149.0) 07/02/19 16:12 Cholesterol 173 mg/dL (0-200) 07/02/19 16:12 LDL Cholesterol, Calc 78.6 mg/dL (0.0-131.0) 07/02/19 16:12 VLDL Cholesterol, Calc 16.40 mg/dL (5.00-40.00) 07/02/19 16:12 HDL Cholesterol 78.0 mg/dL (40.0-60.0) H 07/02/19 16:12 Cholesterol/HDL Ratio 2.22 07/02/19 16:12 Vitamin A 58 ug/dL (38-106) 07/02/19 16:12 Vitamin B12 578.0 pg/mL (200.0-944.0) 07/02/19 16:12 Vitamin D 25-Hydroxy 43.2 ng/mL (30.0-100.0) 07/02/19 16:12 Folate >24.0 ng/mL 07/02/19 16:12 TSH 1.420 uIU/mL (0.350-5.500) 07/02/19 16:12 PTH Intact 41.8 pg/mL (14.0-72.0) 07/02/19 16:12 Copper 1367 ug/L (810-1990) 07/02/19 16:12 Selenium 128 mcg/L (63-160) 07/02/19 16:12 Zinc 77 ug/dL (60-130) 07/02/19 16:12 Objective - Labs CBC & Chem 7: 07/02/19 16:12 07/02/19 16:12
[2019-07-02 15:33] VITALS: BP 155/90; PULSE 91; TEMP 98.2; BMI 28.8
[2019-07-02 16:42] LABS: HCT 40.1 % (34.0-46.0); HGB 13.4 gm/dL (11.4-16.0); MCHC 33.3 g/dL (31.0-37.0); Mean Platelet Volume 7.1; Platelet Count 340 k/uL (150-450); RBC 4.18 m/uL (3.80-5.40); RDW 12.2 % (11.5-15.5); WBC 6.6 k/uL (3.8-10.6)
[2019-07-02 16:49] LABS: INR 0.9 (<1.2); Partial Thromboplastin Time 26.9 sec (22.0-30.0); Prothrombin Time 10.1 sec (9.0-12.0)
[2019-07-02 23:45] LABS: ALT 15 U/L (8-44); AST 24 U/L (13-35); African American GFR (CKD) 87.8 (60.0-200.0); Alkaline Phosphatase 86 U/L (41-126); BUN/Creat Ratio 16.25 Ratio (12.00-20.00); Calcium 9.4 mg/dL (8.7-10.3); Carbon Dioxide 32.6 mmol/L (21.6-31.8); Chloride 99 mmol/L (96-109); Chol/HDL Ratio 2.22; Cholesterol 173 mg/dL (0-200); Globulin 2.3 g/dL (1.6-3.3); Glucose 85 mg/dL (70-110); Iron 76 ug/dL (50-170); LDL Cholesterol,Calculated 78.6 mg/dL (0.0-131.0); Magnesium 1.6 mg/dL (1.5-2.4); Non-African American GFR(CKD) 75.8 (60.0-200.0); Phosphorus 4.1 mg/dL (2.4-5.1); Potassium 3.6 mmol/L (3.5-5.5); Sodium 139 mmol/L (135-145); Total Bilirubin 0.3 mg/dL (0.3-1.2); Total Iron Binding Capacity 322 ug/dL (228-460); Total Protein 6.9 g/dL (6.2-8.2)
[2019-07-02 23:54] LABS: Ferritin 54.6 ng/mL (10.0-291.0)
[2019-07-02 23:56] LABS: Folate, Serum >24.0 ng/mL
[2019-07-03 01:01] LABS: Hemoglobin A1C 5.1 % (4.0-6.0)
[2019-07-03 12:55] LABS: Zinc, Serum 77 ug/dL (60-130)
[2019-07-04 06:11] LABS: Vitamin A 58 ug/dL (38-106)
[2019-07-05 18:01] LABS: Selenium 128 mcg/L (63-160)
== END | disposition home or self-care (01) ==
LOC: BARWHC3 14:22
PROVIDERS: ATTEND Surgery Plastic and Reconstructive Surgery
DX: Z48.815 Encounter for surgical aftercare following surgery on the digestive system (principal); E66.01 Morbid (severe) obesity due to excess calories; Z68.29 Body mass index [BMI] 29.0-29.9, adult; M79.3 Panniculitis, unspecified; E78.5 Hyperlipidemia, unspecified; L98.7 Excessive and redundant skin and subcutaneous tissue; E21.1 Secondary hyperparathyroidism, not elsewhere classified; E89.1 Postprocedural hypoinsulinemia; D50.9 Iron deficiency anemia, unspecified; K90.9 Intestinal malabsorption, unspecified; E55.9 Vitamin D deficiency, unspecified; K74.1 Hepatic sclerosis; N19 Unspecified kidney failure; K50.90 Crohn's disease, unspecified, without complications; Z79.1 Long term (current) use of non-steroidal anti-inflammatories (NSAID); Z79.899 Other long term (current) drug therapy; Z91.048 Other nonmedicinal substance allergy status
CPT/HCPCS: 84255; 84134; 80061; 80053; 82607; 82728; 82525; 82746; 83540; 83550; 83735; 84100; 84443; 84590; 84630; 85027; 85610; 85730; 82306; 83970; 83036; G0463; 99211

== ENCOUNTER → 2020-03-19 | Day surgery (SDC) | payer MEDICARE ==
[2020-03-18 11:36] VITALS: BMI 27.8
[~2020-03-19] MED LIST changes: +LACTATED RINGERS 1,000 ML IV ONE; +LACTATED RINGERS 1,000 ML IV SCH; +LIDOCAINE 1% (10MG/ML) FOR IV START INTRADERMA PRN; +PROPOFOL 10 MG/ML 20 ML VIAL IV ONE; -Pre Op ABX Message 1 EACH MISC MISCELLANE ONE
[2020-03-19 11:10] VITALS: TEMP 97.8
--- NOTE | 2020-03-19 12:53 | P.PCN ---
Date of Procedure: 03/19/20 Procedure(s) Performed: BRIEF HISTORY: Patient is a 61-year-old, pleasant, 5 a, scheduled for an upper endoscopy for evaluation of long-standing history of GERD of several years duration. She has been on Prilosec 20 mg daily and was doing well. However recently her symptoms are progressively getting worse. She started on Nexium 40 mg daily and still remains symptomatic. She is hence scheduled for an upper endoscopy to evaluate further.. She has prior history of gastric sleeve surgery. PROCEDURE PERFORMED: Esophagogastroduodenoscopy with biopsy. PREOPERATIVE DIAGNOSIS: Long-standing history of GERD. IV sedation per anesthesia. PROCEDURE: After informed consent was obtained, the patient was brought into the endoscopy unit. IV sedation was administered by Anesthesia under continuous monitoring. Initially the Olympus GIF-140 video endoscope was inserted into the mouth. Esophagus intubated without any difficulty. It was gradually advanced into the stomach and duodenum and carefully examined. The bulb and the second part of the duodenum appeared normal. The scope at this time was withdrawn to the stomach, adequately insufflated with air, and upon careful examination, mucosa of the antrum, had mild diffuse gastritis and biopsies were done from this area. There was evidence of gastric sleeve surgery noted. The body, appeared normal. The scope was then withdrawn into the esophagus. Moderate size hiatal hernia noted. The GE junction was located at 39 cm from the incisors. The esophagus appeared normal. There were no erosions or ulcerations seen, biopsies were done from the distal esophagus and the patient tolerated the procedure well. IMPRESSION: 1. Mild antral gastritis. 2. Evidence of gastric sleeve surgery. 3. Small to moderate size hiatal hernia RECOMMENDATIONS: The findings of this examination were discussed with the patient as well as a family. She was advised to follow with the biopsy results. She will continue with Nexium 40 mg daily and will be started on Carafate 1 g 4 times daily. She will be seen in office in 6 weeks.
[2020-03-19 12:58] VITALS: RESP 16
[2020-03-19 13:17] VITALS: BP 157/89; PULSE 59
== END ==
LOC: ORWHC2ENDO 10:48
PROVIDERS: ATTEND Internal Medicine Gastroenterology
DX: K21.0 Gastro-esophageal reflux disease with esophagitis (principal); K29.50 Unspecified chronic gastritis without bleeding; K44.9 Diaphragmatic hernia without obstruction or gangrene; I10 Essential (primary) hypertension; E78.5 Hyperlipidemia, unspecified; G47.33 Obstructive sleep apnea (adult) (pediatric); M19.90 Unspecified osteoarthritis, unspecified site; Z79.899 Other long term (current) drug therapy; Z79.1 Long term (current) use of non-steroidal anti-inflammatories (NSAID); Z98.84 Bariatric surgery status
CPT/HCPCS: 88305; 43239; J2704

== ENCOUNTER → 2022-01-03 | Outpatient (CLI) | payer MEDICARE ==
[2022-01-03 11:07] VITALS: BP 139/88; PULSE 64; RESP 17; TEMP 98.7
--- NOTE | 2022-01-03 12:24 | P.HPOB ---
History of Present Illness H&P Date: 01/03/22 Chief Complaint: The patient is here for her routine gynecologic exam and ma mmogram. This is a 72-year-old with an LMP of 2009. The patient is here for her routine gynecologic exam. She is without gynecologic complaints and denies any postmenopausal bleeding. She has had occasional urinary leakage with coughing and sneezing. She also has had occasionally slight urge incontinence where she has to get to the bathroom right away. Review of Systems The patient has lost 3 pounds over the last year. She denies respiratory, cardiac, or G.I. problems. Past Medical History Past Medical History: GERD/Reflux, Hyperlipidemia, Hypertension, Osteoarthritis (OA), Sleep Apnea/CPAP/BIPAP Additional Past Medical History / Comment(s): Seasonal ALLERGIES. 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 History of Any Multi-Drug Resistant Organisms: None Reported Past Surgical History: Back Surgery, Bariatric Surgery, Cholecystectomy, Hernia Repair, Joint Replacement, Orthopedic Surgery, Tubal Ligation Additional Past Surgical History / Comment(s): Panniculectomy, incisional ventral hernia repair. Back surgery x2 Other surgical hx: EGD, gastric Sleeve, revision of PANNICULECTOMY 06/19/16. Right knee replacement. Colonoscopies 2015. Past Anesthesia/Blood Transfusion Reactions: Postoperative Nausea & Vomiting (PONV) Past Psychological History: Anxiety Additional Psychological History / Comment(s): pms years ago Smoking Status: Never smoker Past Alcohol Use History: Occasional (3 per week) Additional Past Alcohol Use History / Comment(s): 1-2 x /week Past Drug Use History: None Reported Additional History: She has been since 1997 and this is her second marriage. She is not sexually active. She goes to [place] for the winter. - Past Family History Father Family Medical History: Diabetes Mellitus Mother Family Medical History: Congestive Heart Failure (CHF), Diabetes Mellitus, Hypertension Additional Family Medical History / Comment(s): Maternal grandmother had cervical cancer. Medications and Allergies Home Medications Medication Instructions Recorded Confirmed Type Multivitamins, Thera [Multivitamin 1 tab PO DAILY 05/31/16 01/03/22 History (formulary)] Escitalopram [Lexapro] 20 mg PO DAILY 02/01/17 01/03/22 History Pravastatin Sodium [Pravachol] 20 mg PO HS 02/01/17 01/03/22 History Cholecalciferol [Vitamin D3] 5,000 unit PO Q48H 06/03/18 01/03/22 History Esomeprazole Magnesium [NexIUM] 40 mg PO DAILY 06/03/18 01/03/22 History Meloxicam [Mobic] 10 mg PO DAILY 06/03/18 01/03/22 History Furosemide [Lasix] 40 mg PO DAILY 03/18/20 01/03/22 History Potassium Gluconate [Potassium 99 mg PO DAILY 03/18/20 01/03/22 History Gluconate ER] diphenhydrAMINE HCL [Benadryl] 12.5 mg PO HS 03/18/20 01/03/22 History Losartan/Hydrochlorothiazide 100 mg PO DAILY 01/03/22 01/03/22 History [Losartan-Hctz 100-12.5 mg Tab] amLODIPine BESYLATE/BENAZEPRIL 25 mg PO DAILY 01/03/22 01/03/22 History [amLODIPine BESYLATE/BENAZEPRIL 5-20 mg] Allergies Allergy/AdvReac Type Severity Reaction Status Date / Time foaming hand soaps AdvReac Swelling Uncoded 01/03/22 10:59 of eyes Exam Vital Signs Temp Pulse Resp BP Pulse Ox 01/03/22 11:03 98.7 F 64 17 139/88 96 Intake and Output 01/02/22 01/03/22 01/03/22 22:59 06:59 14:59 Other: Weight 82.554 kg Height 5 feet 7 inches, weight 182 pounds, BMI 28.5. This is a well-developed well-nourished white female who is alert and oriented times 3 in no acute distress. HEENT: Within normal limits. NECK: Supple without mass or thyromegaly. CHEST AND LUNGS: Clear to auscultation. HEART: Regular rate and rhythm. BREASTS: Are without mass or discharge. AXILLARY EXAM: Negative for adenopathy. BACK: Negative for CVA tenderness. ABDOMEN: Soft, nontender, without palpable masses. PELVIC EXAM: Normal external genitalia with mild atrophy. Cervix and vagina appear normal with mild to moderate atrophy. There is no unusual discharge. There is no evidence of prolapse. The uterus is midposition, nongravid size and nontender. There are no palpable adnexal masses or tenderness. RECTAL EXAM: Rectovaginal exam is negative for mass or tenderness and is negative for occult blood. EXTREMITIES: Nontender. IMPRESSION: 1. 72-year-old menopausal female with normal gynecologic exam. 2. Mild stress urinary incontinence without significant physical findings on exam today. PLAN: 1. Pap smear was performed. If this is negative we will plan on discontinuing Pap smears since she had negative Pap smears in 2016 and 2019 and has no history of cervical neoplasia. 2. Self breast awareness was discussed with the patient. We have also discussed symptoms associated with inflammatory breast cancer. 3. Screening mammogram was done today. 4. Osteoporosis prevention was discussed. I have stressed the importance of adequate calcium, vitamin D and regular exercise. Recommended amounts of calcium and vitamin D were also discussed. I have recommended bone density testing since her last one was done in 2012. The order slip was given to the patient for this. 5. Colorectal cancer screening was discussed. She states she just recently did Cologuard testing through her PCP. 6. She has completed her Covid vaccination series and did receive 2 boosters. 7. We have had a long discussion regarding urinary incontinence. We have discussed [place] exercises and timed voids. Instructions were given to the patient on these. We have also discussed the option of referral for urinary incontinence. 8. She was advised to return in one year for her annual well woman exam and as needed.
--- NOTE | 2022-01-04 08:01 | MM ---
Reason for Exam: Screening (asymptomatic). Last mammogram was performed 2 year(s) and 6 month(s) ago. Patient History: Menarche at age 14. First Full-Term at age 18. Postmenopausal. Hormonal Contraceptives for 6 months from age 19 until age 20. 04/20/2008, Benign Core Biopsy on the right side. Risk Values: Dede 5 year model risk: 1.5%. NCI Lifetime model risk: 4.1%. Prior Study Comparison: 07/02/2015 Bilateral Screening Mammogram, [facility]. 05/29/2017 Bilateral Screening Mammogram, [facility]. 06/17/2019 Bilateral Screening Mammogram, [facility]. Tissue Density: The breast tissue is heterogeneously dense. This may lower the sensitivity of mammography. Findings: Analyzed By CAD. There is no suspicious group of microcalcifications or new suspicious mass in either breast. Stable benign calcifications noted bilaterally. Overall Assessment: Benign, BI-RAD 2 Management: Screening Mammogram of both breasts in 1 year. A clinical breast exam by your physician is recommended on an annual basis and results should be correlated with mammographic findings. Electronically signed and approved by: Cy Gr M.D. Radiologis
== END | disposition home or self-care (01) ==
LOC: RADMAMWWP 10:40
PROVIDERS: ATTEND Obstetrics & Gynecology
DX: Z12.31 Encounter for screening mammogram for malignant neoplasm of breast (principal); R92.1 Mammographic calcification found on diagnostic imaging of breast; Z78.0 Asymptomatic menopausal state
CPT/HCPCS: 77063; 77067

== ENCOUNTER → 2022-02-15 | Outpatient (CLI) | payer MEDICARE ==
--- NOTE | 2022-02-15 19:26 | BD ---
EXAMINATION TYPE: Axial Bone Density DATE OF EXAM: 02/15/2022 COMPARISON: 05/02/2013 CLINICAL HISTORY: 72 years year old Female. ICD-10 CODE: Z78.0 Asymptomatic menopausal state Height: 66 IN Weight: 184 LBS RISK FACTORS HISTORY OF: Active: YES Postmenopausal woman: AGE 59 MEDICATIONS: Additional Medications: CALCIUM, VIT D, PRAVASTATIN, BLOOD PRESSURE MEDS, LEXAPRO, EXAM MEASUREMENTS: Bone mineral densitometry was performed using the [employer] System. Bone mineral density as measured about the Lumbar spine is: ----- L1-L4(G/cm2): 1.655 T Score Values are as follows: ----- L1: 1.9 ----- L2: 3.9 ----- L3: 5.2 ----- L4: 4.0 ----- L1-L4: 4.0 Bone mineral density has: Increased 16.4% since study of: 05/02/2013 Bone mineral density about the R hip (g/cm2): 0.835 Bone mineral density about the L hip (g/cm2): 0.884 T Score values are as follows: -----R Neck: -1.5 -----L Neck: -1.1 -----R Total: -0.1 -----L Total: -0.8 Bone mineral density has: Decreased -15.9% since study of: 05/02/2013 FRAX%s: The graph provided illustrates a 9.9 chance for a major osteoporotic fx and a 1.5 chance for the hips probability for fx in 10 years time. IMPRESSION: Osteopenia (T Score between -2.5 and -1). There is slightly increased risk of fracture and the patient may be considered for treatment. Re-Screen 2-5 years. NOTE: T-SCORE=SD OF THE YOUNG ADULT MEAN.
== END | disposition home or self-care (01) ==
LOC: RADBDWWP 10:39
PROVIDERS: ATTEND Obstetrics & Gynecology
DX: M85.89 Other specified disorders of bone density and structure, multiple sites (principal); Z78.0 Asymptomatic menopausal state
CPT/HCPCS: 77080

== ENCOUNTER → 2022-02-23 | Outpatient (CLI) | payer MEDICARE ==
--- NOTE | 2022-02-23 13:42 | CT ---
EXAMINATION TYPE: CT brain wo con CT DLP: 1015.7 mGycm, Automated exposure control for dose reduction was used. DATE OF EXAM: 02/23/2022 1:32 PM COMPARISON: CT brain 04/29/2012. CLINICAL INDICATION:Female, 72 years old with history of R29.6, frequent falls TECHNIQUE: Brain: Axial CT images of the brain were obtained with coronal and sagittal reformats created and rev iewed. Contrast used: None. Oral contrast used: None. FINDINGS: Brain: Extra-axial spaces: No abnormal extra-axial fluid collections. Ventricular system: Within normal limits Cerebral parenchyma: No acute intraparenchymal hemorrhage or mass effect. The garcia-white junction is well differentiated. Scattered hypoattenuating areas are seen within the white matter. Cerebellum: Unremarkable. Mass effect: No evidence of midline shift. Intracranial vasculature: Atherosclerotic calcifications of the intracranial vessels. Soft tissues: Normal. Calvarium/osseous structures: No depressed skull fracture. Paranasal sinuses and mastoid air cells: Mild scattered paranasal sinus disease. Visualized orbits: Orbital contents are intact. IMPRESSION: 1. No acute intracranial process. 2. Nonspecific white matter changes, likely secondary to chronic small vessel ischemic disease.
== END | disposition home or self-care (01) ==
LOC: RADCTMAIN 13:17
PROVIDERS: ATTEND Family Medicine
DX: R29.6 Repeated falls (principal); I67.82 Cerebral ischemia
CPT/HCPCS: 70450

== ENCOUNTER → 2022-06-21 | Outpatient (CLI) | payer MEDICARE ==
--- NOTE | 2022-06-21 11:18 | US ---
EXAMINATION TYPE: US venous doppler duplex LE DATE OF EXAM: 06/21/2022 11:10 AM COMPARISON: NONE CLINICAL HISTORY: R60.0 LOCALIZED EDEMA. Edema. No hx of DVT. Patient does not take blood thinners. H x of right knee replacement. SIDE PERFORMED: Bilateral TECHNIQUE: The lower extremity deep venous system is examined utilizing real time linear array sonog alfredo with graded compression, doppler sonography and color-flow sonography. VESSELS IMAGED: Common Femoral Vein Deep Femoral Vein Greater Saphenous Vein * Femoral Vein Popliteal Vein Small Saphenous Vein * Proximal Calf Veins (* superficial vessels) Right Leg: No evidence of DVT in veins imaged at this time. Left Leg: No evidence of DVT in veins imaged at this time. IMPRESSION:
== END | disposition home or self-care (01) ==
LOC: RADUSWWP 10:43
PROVIDERS: ATTEND Family Medicine
DX: R60.0 Localized edema (principal)
CPT/HCPCS: 93970

== ENCOUNTER → 2023-01-23 | Outpatient (CLI) | payer MEDICARE ==
[2023-01-23 14:33] VITALS: BP 122/79; PULSE 77; RESP 16; TEMP 98.2
--- NOTE | 2023-01-23 16:13 | P.HPOB ---
History of Present Illness H&P Date: 01/23/23 Chief Complaint: The patient is here for her routine gynecologic exam and ma mmogram. This is a 73-year-old with an LMP of 2009. The patient is without gynecologic complaints and denies any postmenopausal bleeding. Review of Systems She is getting about 3 pounds over the past year. She denies respiratory or cardiac problems. GI: She has occasional stomach symptoms and underwent a upper endoscopy for this earlier this year. Past Medical History Past Medical History: GERD/Reflux, Hyperlipidemia, Hypertension, Osteoarthritis (OA), Sleep Apnea/CPAP/BIPAP Additional Past Medical History / Comment(s): Seasonal ALLERGIES. Back problems. Zapien's esophagus. 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 History of Any Multi-Drug Resistant Organisms: None Reported Past Surgical History: Back Surgery, Bariatric Surgery, Cholecystectomy, Hernia Repair, Joint Replacement, Orthopedic Surgery, Tubal Ligation Additional Past Surgical History / Comment(s): Panniculectomy, incisional ventral hernia repair. Back surgery x2 Other surgical hx: EGD, gastric Sleeve, revision of PANNICULECTOMY 06/19/16. Right knee replacement. Colonoscopies 2015. rt shoulder replacement. Upper GI endoscopy 2022. Past Anesthesia/Blood Transfusion Reactions: Postoperative Nausea & Vomiting (PONV) Past Psychological History: Anxiety Additional Psychological History / Comment(s): pms years ago Smoking Status: Never smoker Past Alcohol Use History: Occasional (2-3 per week) Additional Past Alcohol Use History / Comment(s): 1-2 x /week Past Drug Use History: None Reported Additional History: She has been since 1997 and this is her second marriage. She is not sexually active. She goes to [place] for the winter. - Past Family History Father Family Medical History: Diabetes Mellitus Mother Family Medical History: Congestive Heart Failure (CHF), Diabetes Mellitus, Hypertension Additional Family Medical History / Comment(s): Maternal grandmother had cervical cancer. Medications and Allergies Home Medications Medication Instructions Recorded Confirmed Type Multivitamins, Thera [Multivitamin 1 tab PO DAILY 05/31/16 01/23/23 History (formulary)] Escitalopram [Lexapro] 20 mg PO DAILY 02/01/17 01/23/23 History Pravastatin Sodium [Pravachol] 20 mg PO HS 02/01/17 01/23/23 History Cholecalciferol [Vitamin D3] 5,000 unit PO Q48H PRN 06/03/18 01/23/23 History Esomeprazole Magnesium [NexIUM] 40 mg PO DAILY 06/03/18 01/23/23 History Meloxicam [Mobic] 10 mg PO DAILY 06/03/18 01/23/23 History Furosemide [Lasix] 40 mg PO DAILY 03/18/20 01/23/23 History Potassium Gluconate [Potassium 99 mg PO DAILY 03/18/20 01/23/23 History Gluconate ER] amLODIPine BESYLATE/BENAZEPRIL 12.5 mg PO HS 01/03/22 01/23/23 History [amLODIPine BESYLATE/BENAZEPRIL 5-20 mg] Fish Oil(Unk) 1 tab PO DAILY 12/29/22 01/23/23 History Losartan [Cozaar] 100 mg PO DAILY 12/29/22 01/23/23 History Cetirizine HCl [Zyrtec] 5 mg PO DAILY 01/23/23 01/23/23 History Mecobalamin [Vitamin B-12] 1 tab PO DAILY 01/23/23 01/23/23 History Allergies Allergy/AdvReac Type Severity Reaction Status Date / Time foaming hand soaps AdvReac Swelling Uncoded 01/23/23 14:28 of eyes Exam Vital Signs Temp Pulse Resp BP Pulse Ox 01/23/23 14:30 98.2 F 77 16 122/79 96 Intake and Output 01/23/23 01/23/23 01/23/23 06:59 14:59 22:59 Other: Weight 83.915 kg Height 5 feet 7 inches, weight 185 pounds, BMI 29.0. This is a well-developed well-nourished white female who is alert and oriented times 3 in no acute distress. HEENT: Within normal limits. NECK: Supple without mass or thyromegaly. CHEST AND LUNGS: Clear to auscultation. HEART: Regular rate and rhythm. BREASTS: Are without mass or discharge. AXILLARY EXAM: Negative for adenopathy. BACK: Negative for CVA tenderness. ABDOMEN: Soft, nontender, without palpable masses. PELVIC EXAM: Normal external genitalia with mild atrophy. Cervix and vagina appear normal with mild atrophy. There is no unusual discharge. There is no evidence of prolapse. The uterus is midposition, nongravid size and nontender. There are no palpable adnexal masses or tenderness. RECTAL EXAM: Rectovaginal exam is negative for mass or tenderness and is negative for occult blood. EXTREMITIES: Nontender. IMPRESSION: 1. 73-year-old menopausal female with normal gynecologic exam. PLAN: 1. Pap smears have been discontinued. 2. Self breast awareness was discussed with the patient. We have also discussed symptoms associated with inflammatory breast cancer. 3. Screening mammogram was done today. 4. Osteoporosis prevention was discussed. I have stressed the importance of adequate calcium, vitamin D and regular exercise. Recommended amounts of calcium and vitamin D were also discussed. We will plan on repeating bone density testing in 1-2 years since her last one was done on 02/15/2022. 5. Colorectal cancer screening was discussed. Her last colonoscopy was in 2015. She states she has been doing screening with Cologuard through her PCP. 6. She was advised to return in one year for her annual well woman exam.
--- NOTE | 2023-01-24 14:33 | MM ---
Reason for Exam: Screening (asymptomatic). Last mammogram was performed 1 year(s) and 1 month(s) ago. Patient History: Menarche at age 14. First Full-Term at age 18. Postmenopausal. Patient has history of breast feeding. Hormonal Contraceptives for 6 months from age 19 until age 20. 04/20/2008, Benign Core Biopsy on the right side. Risk Values: Dede 5 year model risk: 1.5%. NCI Lifetime model risk: 3.9%. Prior Study Comparison: 05/29/2017 Bilateral Screening Mammogram, [facility]. 06/17/2019 Bilateral Screening Mammogram, [facility]. 01/03/2022 Bilateral MG 3D screening mammo w/cad, [facility]. Tissue Density: There are scattered fibroglandular densities. Findings: Analyzed By CAD. Pattern appears symmetrical and stable. No significant interval changes are evident. There are scattered benign-appearing calcifications present bilaterally. A core marker appears to be within the right breast. No suspicious groups of microcalcifications, spiculated or lobular masses, architectural distortion or other secondary signs of malignancy are mammographically apparent. Overall Assessment: Benign, BI-RAD 2 Management: Screening Mammogram of both breasts in 1 year. A negative mammogram report should not preclude additional follow up of suspicious palpable abnormalities. Patient should continue monthly self breast exam. A clinical breast exam by your physician is recommended on an annual basis and results should be correlated with mammographic findings. Electronically signed and approved by: Candido Lo D.O. Radiologis
== END ==
LOC: WWCWWP 13:56
PROVIDERS: ATTEND Obstetrics & Gynecology
DX: Z12.31 Encounter for screening mammogram for malignant neoplasm of breast (principal); Z01.419 Encounter for gynecological examination (general) (routine) without abnormal findings; E78.5 Hyperlipidemia, unspecified; G47.30 Sleep apnea, unspecified; M19.90 Unspecified osteoarthritis, unspecified site; K22.70 Barrett's esophagus without dysplasia; I10 Essential (primary) hypertension; K21.9 Gastro-esophageal reflux disease without esophagitis; Z96.651 Presence of right artificial knee joint; Z91.048 Other nonmedicinal substance allergy status; Z79.899 Other long term (current) drug therapy; Z78.0 Asymptomatic menopausal state
CPT/HCPCS: 77063; 77067

== ENCOUNTER → 2024-06-18 | Outpatient (CLI) | payer MEDICARE ==
--- NOTE | 2024-06-18 08:25 | US ---
EXAMINATION TYPE: US carotid duplex BILAT DATE OF EXAM: 06/18/2024 COMPARISON: NONE CLINICAL INDICATION: Female, 74 years old with history of R42 DIZZY GIDDY; giddiness Additional History: R42* Dizziness TECHNIQUE: Grayscale, color Doppler and spectral Doppler evaluation of the bilateral carotid systems and vertebral arteries. Indirect Doppler criteria was utilized. 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 No elevated velocities seen Color Doppler imaging shows patency with blood flow throughout the carotid artery. Spectral waveforms are within normal limits. IMPRESSION: Right: No hemodynamically significant stenosis. Left: No hemodynamically significant stenosis. Criteria for Assigning % of Stenosis / Diameter reduction (Estimation based on the indirect measurements of the internal carotid artery velocities (ICA PSV). 1. Normal (no stenosis)=ICA PSV < 125 cm/s: ratio < 2.0: ICA EDV<40 cm/s. 2. Less than 50% stenosis=ICA PSV < 125 cm/s: ratio < 2.0: ICA EDV<40 cm/s. 3. 50 to 69% stenosis=ICA PSV of 125 to 230 cm/s: ration 2.0 ? 4.0: ICA EDV 40-100 cm/s. 4. Greater than 70% stenosis to near occlusion= ICA PSV > 230 cm/s: ratio > 4.0: ICA EDV > 100 cm/s. 5. Near occlusion= ICA PSV velocities may be low or undetectable: variable ratio and ICA EDV. 6. Total occlusion=unable to detect flow. [facility], , 06/18/2024 8:23 AM
== END | disposition home or self-care (01) ==
LOC: RADUSWWP 07:01
PROVIDERS: ATTEND Family Medicine
DX: R42 Dizziness and giddiness (principal)
CPT/HCPCS: 93880

== ENCOUNTER → 2024-07-23 | Outpatient (CLI) | payer MEDICARE ==
--- NOTE | 2024-07-23 15:57 | CT ---
EXAMINATION TYPE: CT iac wo con DATE OF EXAM: 07/23/2024 COMPARISON: None CLINICAL INDICATION: Female, 74 years old with history of R42 DIZZINESS AND GIDDINESS H91.90 UNSPECI FIED HE; PHH, dizziness TECHNIQUE: CT scan of internal auditory canal is performed without contrast, thin cut axial images ar e obtained, coronal reformatted images are also reviewed. CT DLP: [address] CTDI: mGy Automated exposure control for dose reduction was used. FINDINGS: The external auditory canals are patent bilaterally. There is moderate fluid in the left mastoid air cells and left middle ear cavity consistent with acut e mastoiditis and otitis media. The right mastoid air cells and middle ear cavity are well aerated. The inner ear structures and internal auditory canals are normal and symmetric bilaterally. There is no osseous destruction and the ossicular chains are intact. Temporomandibular joints are maintained bilaterally. There are mild chronic inflammatory changes in the maxillary sinus and sphenoid sinus. IMPRESSION: IMPRESSION: 1. Acute left mastoiditis and otitis media. 2. No abnormality of the right temporal bone or temporal bone structures. 3. Mild chronic inflammatory changes in the sphenoid and bilateral maxillary sinuses. [facility], , 07/23/2024 3:54 PM
== END | disposition home or self-care (01) ==
LOC: RADCTMAIN 14:42
PROVIDERS: ATTEND Otolaryngology
DX: H66.92 Otitis media, unspecified, left ear (principal); H70.002 Acute mastoiditis without complications, left ear; J34.89 Other specified disorders of nose and nasal sinuses; R42 Dizziness and giddiness; H91.92 Unspecified hearing loss, left ear
CPT/HCPCS: 70480

== ENCOUNTER 2024-10-20 13:01 | Emergency (ER) | payer MEDICARE ==
[2024-10-20 13:06] VITALS: TEMP 98.4
[2024-10-20 13:24] LABS: Basophils % (A) 1 %; Eosinophils # (A) 0.1 k/uL (0-0.7); Eosinophils % (A) 1 %; HCT 40.7 % (34.0-46.0); HGB 13.2 gm/dL (11.4-16.0); Lymphocytes # (A) 1.6 k/uL (1.0-4.8); Lymphocytes % (A) 19 %; MCH 31.1 pg (25.0-35.0); MCHC 32.3 g/dL (31.0-37.0); MCV 96.2 fL (80.0-100.0); Mean Platelet Volume 7.4; Monocytes # (A) 0.3 k/uL (0-1.0); Monocytes % (A) 4 %; Neutrophils # (A) 6.1 k/uL (1.3-7.7); Neutrophils % (A) 74 %; Platelet Count 345 k/uL (150-450); RBC 4.24 m/uL (3.80-5.40); RDW 12.5 % (11.5-15.5); WBC 8.3 k/uL (3.8-10.6)
[2024-10-20 13:41] LABS: ALT 15 U/L (4-34); AST 25 U/L (14-36); African American GFR (CKD) 80 (>60 ml/min/1.73 sqM); Albumin 4.5 g/dL (3.5-5.0); Alkaline Phosphatase 77 U/L (38-126); Anion Gap 9 mmol/L; Blood Urea Nitrogen 15 mg/dL (7-17); Calcium 9.8 mg/dL (8.4-10.2); Carbon Dioxide 28 mmol/L (22-30); Chloride 98 mmol/L (98-107); Glucose 99 mg/dL (74-99); Magnesium 1.6 mg/dL (1.6-2.3); Non-African American GFR(CKD) 69 (>60 ml/min/1.73 sqM); Potassium 3.9 mmol/L (3.5-5.1); Sodium 135 mmol/L (137-145); Total Bilirubin 0.7 mg/dL (0.2-1.3); Total Protein 7.3 g/dL (6.3-8.2)
--- NOTE | 2024-10-20 13:57 | ED ---
General Adult HPI - General Chief complaint: Recheck/Abnormal Lab/Rx Stated complaint: elevated BP Time Seen by Provider: 10/20/24 13:16 Source: patient, RN notes reviewed Mode of arrival: ambulatory Limitations: no limitations - History of Present Illness Initial comments: Patient is a 74-year-old female presenting to the emergency department with conc erns for hypertension. Patient states her blood pressure has been running high for the past week. No other specific complaints. Patient does have history of hypertension. Patient is on losartan 100 mg daily. If blood pressure remains high an hour after that she takes hydralazine. Patient also takes Lasix at nighttime. Blood pressure this morning was still 190/97 prior to arrival after taking hydralazine. - Related Data Home Medications Medication Instructions Recorded Confirmed Multivitamins, Thera [Multivitamin 1 tab PO DAILY 05/31/16 10/20/24 (formulary)] Escitalopram [Lexapro] 20 mg PO HS 02/01/17 10/20/24 Pravastatin Sodium [Pravachol] 40 mg PO HS 02/01/17 10/20/24 Esomeprazole Magnesium [NexIUM] 40 mg PO DAILY 06/03/18 10/20/24 Furosemide [Lasix] 40 mg PO DAILY 03/18/20 10/20/24 Cetirizine HCl [Zyrtec] 10 mg PO HS 10/20/24 10/20/24 Losartan Potassium 100 mg PO DAILY 10/20/24 10/20/24 Semaglutide [Ozempic] 2 mg SQ DIRECTED 10/20/24 10/20/24 hydrALAZINE HCL [Apresoline] 25 mg PO TID 10/20/24 10/20/24 Previous Rx's Medication Instructions Recorded amLODIPine [Norvasc] 2.5 mg PO DAILY #10 tablet 10/20/24 Allergies Allergy/AdvReac Type Severity Reaction Status Date / Time foaming hand soaps Allergy Swelling Uncoded 10/20/24 14:07 of eyes Review of Systems ROS Statement: Those systems with pertinent positive or pertinent negative responses have been documented in the HPI. ROS Other: All systems not noted in ROS Statement are negative. Constitutional: Denies: fever Eyes: Denies: eye pain ENT: Denies: ear pain Cardiovascular: Denies: chest pain Gastrointestinal: Denies: abdominal pain Musculoskeletal: Denies: back pain Past Medical History Past Medical History: GERD/Reflux, Hyperlipidemia, Hypertension, Osteoarthritis (OA), Sleep Apnea/CPAP/BIPAP Additional Past Medical History / Comment(s): Seasonal ALLERGIES. Back problems. Zapien's esophagus. 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 History of Any Multi-Drug Resistant Organisms: None Reported Past Surgical History: Back Surgery, Bariatric Surgery, Cholecystectomy, Hernia Repair, Joint Replacement, Orthopedic Surgery, Tubal Ligation Additional Past Surgical History / Comment(s): Panniculectomy, incisional ventral hernia repair. Back surgery x2 Other surgical hx: EGD, gastric Sleeve, revision of PANNICULECTOMY 06/19/16. Right knee replacement. Colonoscopies 2015. rt shoulder replacement. Upper GI endoscopy 2022. Past Anesthesia/Blood Transfusion Reactions: Postoperative Nausea & Vomiting (PONV) Past Psychological History: Anxiety Smoking Status: Never smoker Past Alcohol Use History: Occasional Past Drug Use History: None Reported - Past Family History Father Family Medical History: Diabetes Mellitus Mother Family Medical History: Congestive Heart Failure (CHF), Diabetes Mellitus, Hypertension Additional Family Medical History / Comment(s): Maternal grandmother had cervical cancer. General Exam Limitations: no limitations General appearance: alert, in no apparent distress Head exam: Present: normocephalic Eye exam: Present: normal appearance, PERRL, EOMI Neck exam: Present: normal inspection Respiratory exam: Present: normal lung sounds bilaterally Cardiovascular Exam: Present: regular rate, normal rhythm Expanded Peripheral pulses: 2+: Radial (R), Radial (L), Posterior Tibialis (R), Posterior Tibialis (L) GI/Abdominal exam: Present: soft. Absent: tenderness, pulsatile mass Extremities exam: Present: normal inspection. Absent: pedal edema, calf tenderness Neurological exam: Present: alert, CN II-XII intact. Absent: motor sensory deficit Psychiatric exam: Present: normal affect, normal mood Skin exam: Present: normal color Course Vital Signs 10/20/24 10/20/24 10/20/24 13:02 14:30 14:33 Temperature 98.4 F Pulse Rate 70 69 Pulse Rate [ 68 Pulse Oximetery ] Respiratory 18 19 Rate Blood Pressure 173/96 164/92 O2 Sat by Pulse 96 97 Oximetry EKG Findings - EKG Results: EKG: interpreted by ERMD, sinus rhythm, normal axis, normal QRS, normal ST/T Medical Decision Making - Medical Decision Making Was pt. sent in by a medical professional or institution (, BRISA, ANALYST GEOCHEMICAL PROSPECTING, urgent ca re, hospital, or long-term...) When possible be specific @ -No Did you speak to anyone other than the patient for history (EMS, parent, family, police, friend...)? What history was obtained from this source @ -No Did you review nursing and triage notes (agree or disagree)? Why? @ -I reviewed and agree with nursing and triage notes Were old charts reviewed (outside hosp., previous admission, EMS record, old EKG, old radiological studies, urgent care reports/EKG's, long-term records)? Report findings @ -No old charts were reviewed Differential Diagnosis (chest pain, altered mental status, abdominal pain women, abdominal pain men, vaginal bleeding, weakness, fever, dyspnea, syncope, headache, dizziness, GI bleed, back pain, seizure, CVA, palpatations, mental health, musculoskeletal)? @ -Differential Palpitations Ventricular arrhythmias, atrial arrhythmias, myocardial infarction, anemia, thyrotoxicosis, electrolyte imbalance, hypokalemia, pulmonary embolism, pulmonary disease, drugs, alcohol, anxiety, stress.... This is not meant to be an all-inclusive list. EKG interpreted by me (3pts min.). @ -As above X-rays interpreted by me (1pt min.). @ - CT interpreted by me (1pt min.). @ -None done U/S interpreted by me (1pt. min.). @ -None done What testing was considered but not performed or refused? (CT, X-rays, U/S, labs)? Why? @ -None What meds were considered but not given or refused? Why? @ -None Did you discuss the management of the patient with other professionals (professionals i.e. , BRISA, ANALYST GEOCHEMICAL PROSPECTING, lab, RT, psych nurse, delinquency prevention social worker, guide excursion, teacher, drug abuse resistance education officer, case management social worker)? Give summary @ -No Was smoking cessation discussed for >3mins.? @ -No Was critical care preformed (if so, how long)? @ -No Were there social determinants of health that impacted care today? How? (Homelessness, low income, unemployed, alcoholism, drug addiction, transport ation, low edu. Level, literacy, decrease access to med. care, fdc, rehab)? @ -No Was there de-escalation of care discussed even if they declined (Discuss DNR or withdrawal of care, Hospice)? DNR status @ -No What co-morbidities impacted this encounter? (DM, HTN, Smoking, COPD, CAD, Cancer, CVA, ARF, Chemo, Hep., AIDS, mental health diagnosis, sleep apnea, morbid obesity)? @ -History of hypertension Was patient admitted / discharged? Hospital course, mention meds given and route, prescriptions, significant lab abnormalities, going to OR and other pertinent info. @ -Patient presents with concern for hypertension. Patient has chronic standing hypertension however has been difficult to control the last week. Blood pressure has improved. Patient will be provided low-dose Norvasc as well as prescription until she can follow-up with her primary care physician. Patient updated Undiagnosed new problem with uncertain prognosis? @ -No Drug Therapy requiring intensive monitoring for toxicity (Heparin, Nitro, Insulin, Cardizem)? @ -No Were any procedures done? @ -No Diagnosis/symptom? @ -Hypertension Acute, or Chronic, or Acute on Chronic? @ -Acute Uncomplicated (without systemic symptoms) or Complicated (systemic symptoms)? @ -Default Side effects of treatment? @ -No Exacerbation, Progression, or Severe Exacerbation? @ -No Poses a threat to life or bodily function? How? (Chest pain, [place], [place], pneumonia, PE, COPD, DKA, ARF, appy, cholecystitis, CVA, Diverticulitis, Homicidal, Suicidal, threat to staff... and all critical care pts) @ -No - Lab Data Result diagrams: 10/20/24 13:16 10/20/24 13:16 Lab Results 10/20/24 10/20/24 Range/Units 13:16 13:16 WBC 8.3 (3.8-10.6) k/uL RBC 4.24 (3.80-5.40) m/uL Hgb 13.2 (11.4-16.0) gm/dL Hct 40.7 (34.0-46.0) % MCV 96.2 (80.0-100.0) fL MCH 31.1 (25.0-35.0) pg MCHC 32.3 (31.0-37.0) g/dL RDW 12.5 (11.5-15.5) % Plt Count 345 (150-450) k/uL MPV 7.4 Neutrophils % 74 % Lymphocytes % 19 % Monocytes % 4 % Eosinophils % 1 % Basophils % 1 % Neutrophils # 6.1 (1.3-7.7) k/uL Lymphocytes # 1.6 (1.0-4.8) k/uL Monocytes # 0.3 (0-1.0) k/uL Eosinophils # 0.1 (0-0.7) k/uL Basophils # 0.0 (0-0.2) k/uL Sodium 135 L (137-145) mmol/L Potassium 3.9 (3.5-5.1) mmol/L Chloride 98 (98-107) mmol/L Carbon Dioxide 28 (22-30) mmol/L Anion Gap 9 mmol/L BUN 15 (7-17) mg/dL Creatinine 0.84 (0.52-1.04) mg/dL Est GFR (CKD-EPI)AfAm 80 (>60 ml/min/1.73 sqM) Est GFR (CKD-EPI)NonAf 69 (>60 ml/min/1.73 sqM) Glucose 99 (74-99) mg/dL Calcium 9.8 (8.4-10.2) mg/dL Magnesium 1.6 (1.6-2.3) mg/dL Total Bilirubin 0.7 (0.2-1.3) mg/dL AST 25 (14-36) U/L ALT 15 (4-34) U/L Alkaline Phosphatase 77 (38-126) U/L Total Protein 7.3 (6.3-8.2) g/dL Albumin 4.5 (3.5-5.0) g/dL Disposition Clinical Impression: Hypertension Disposition: HOME SELF-CARE Condition: Stable Instructions (If sedation given, give patient instructions): Hypertension (ED) Additional Instructions: Prescription for Norvasc sent to pharmacy. Please take this daily until follow- up with your primary care physician further directions provided. Continue as needed hydralazine for uncontrolled blood pressure. Return for continued uncontrolled blood pressure, chest pain or weakness, worsening symptoms or other concerns. Prescriptions: amLODIPine [Norvasc] 2.5 mg PO DAILY #10 tablet Is patient prescribed a controlled substance at d/c from ED?: No Referrals: SouCandido pastor DO [Primary Care Provider] - 1-2 days Time of Disposition: 15:02
[2024-10-20] MEDS: amLODIPine 5 MG TAB PO STA (15:36)
[2024-10-20 15:44] VITALS: BP 188/99; PULSE 65; RESP 18
== END 2024-10-20 15:46 | disposition home or self-care (01) ==
LOC: EC 13:01
DX: I10 Essential (primary) hypertension (principal); Z88.8 Allergy status to other drugs, medicaments and biological substances
CPT/HCPCS: 36415; 80053; 83735; 85025; 93005; 99283

== ENCOUNTER 2024-11-19 09:18 | Day surgery (SDC) | payer MEDICARE ==
[2024-07-03 10:51] VITALS: BMI 29.6
[2024-11-19 09:53] VITALS: RESP 16; TEMP 97.9
[2024-11-19] MEDS: IV FLUID CONTINUATION 1,000 ML IV ONE (09:53)
[2024-11-19] MEDS: LACTATED RINGERS 1,000 ML IV SCH (09:54)
[2024-11-19] MEDS ORDERED: LIDOCAINE 1% INJ 10MG/ML (20 ML MDV) ONE (10:16)
[2024-11-19] MEDS ORDERED: PROPOFOL 10 MG/ML 20 ML VIAL IV ONE (10:16)
--- NOTE | 2024-11-19 10:35 | P.PCN ---
Date of Procedure: 11/19/24 Procedure(s) Performed: BRIEF HISTORY: Patient is a 74-year-old pleasant white female scheduled for an elective colonoscopy as a part of evaluation of change in bowel habits for the last several months duration. PROCEDURE PERFORMED: Colonoscopy. PREOPERATIVE DIAGNOSIS: Change in bowel habits. IV sedation per Anesthesia. PROCEDURE: After informed consent was obtained, the patient, was brought into the endoscopy unit. IV sedation was administered by Anesthesia under continuous monitoring. Digital rectal examination was normal. Initially the Olympus CF-160 flexible video colonoscope was then inserted in the rectum, gradually advanced into the cecum without any difficulty. Careful examination was performed as the scope was gradually being withdrawn. Ileocecal valve and the appendiceal orifice were visualized and appeared normal. Prep was fair. Mucosa of the cecum, ascending colon, transverse colon, descending colon, sigmoid colon, and rectum appeared normal. Retroflexion was performed in the rectum and no lesions were seen. The patient tolerated the procedure well. IMPRESSION: Normal-appearing colon from rectum to cecum with no evidence of colorectal neoplasia. RECOMMENDATIONS: Findings of this examination were discussed with the patient as well as her family. She was advised to be on a high-fiber diet and take fiber supplements on a regular basis. Recommended repeat screening colonoscopy in 10 years..
[2024-11-19 11:09] VITALS: BP 143/82; PULSE 63
== END 2024-11-19 11:30 | disposition home or self-care (01) ==
LOC: ORWHC2ENDO 09:18
PROVIDERS: ATTEND Internal Medicine Gastroenterology
DX: R19.4 Change in bowel habit (principal); I10 Essential (primary) hypertension; E78.5 Hyperlipidemia, unspecified; Z79.85 Long-term (current) use of injectable non-insulin antidiabetic drugs; Z79.899 Other long term (current) drug therapy; Z88.8 Allergy status to other drugs, medicaments and biological substances
CPT/HCPCS: 45378; J2003; J2704